=== PATIENT | female | born 1965 | race Caucasian/White ===

== ENCOUNTER 2022-01-13 12:37 | Emergency (ER) | payer SELFPAY ==
[2022-01-13 13:51] LABS: #Basophils 0.1 thou/uL (0.0-0.2); #Eosinphils 0.3 thou/uL (0.0-0.7); #Lymphocytes 2.6 thou/uL (1.20-3.40); #Monocytes 0.4 thou/uL (0.11-0.59); #Neutrophils 5.4 thou/uL (1.40-6.50); %Basophils 0.9 % (0.0-1.0); %Eosinophils 2.9 % (0.0-10.0); %Lymphocytes 29.6 % (21.0-51.0); %Monocytes 4.5 % (0.0-10.0); %Neutrophils 62.2 % (42.0-75.0); Hemoglobin 13.9 g/dL (12.0-16.0); Mean Corpuscular HGB CONC 34.3 g/dL (32.0-36.0); Mean Corpuscular Hemoglobin 31.5 pg (27.0-31.0); Mean Corpuscular Volume 91.8 fL (78.0-98.0); Mean Platelet Volume 8.1 fL (7.4-10.4); Platelet Count 216 thou/uL (130-400); RBC Distribution Width 12.3 % (11.5-14.5); Red Blood Cell (RBC) Count 4.41 mill/uL (4.20-5.40); White Blood Cell (WBC) Count 8.8 thou/uL (4.8-10.8)
[2022-01-13 14:04] LABS: Bilirubin Negative (Negative); Blood, Urine 3+ (Negative); Clarity Turbid (Clear); Glucose, Urine (Dipstick) 500 mg/dL (Negative); Ketone, Urine Negative (Negative); Leukocyte 500 Leu/uL (Negative); Nitrite Negative (Negative); Protein, Urine (Dipstick) 200 mg/dL (Neg-Trace); Urobilinogen Normal mg/dL (Less than 2); pH, Urine 5.5 (5.0-9.0)
[2022-01-13 14:10] LABS: ALT (SGPT) 12 U/L (8-55); AST (SGOT) 12 U/L (5-34); Albumin 3.5 g/dL (3.5-5.0); Alkaline Phosphatase 80 U/L (40-110); Anion Gap 12 mmol/L (10-20); BUN (Urea Nitrogen) 23 mg/dL (9.8-20.1); Bilirubin, Total 0.6 mg/dL (0.2-1.2); Calc. Creatinine Clearance 0 mL/min (70-130); Calcium 9.1 mg/dL (7.8-10.44); Carbon Dioxide 18 mmol/L (22-29); Chloride 107 mmol/L (98-107); Glucose 287 mg/dL (70-105); Lipase 24 U/L (8-78); Magnesium 1.6 mg/dL (1.6-2.6); Potassium 4.2 mmol/L (3.5-5.1); Protein, Total 7.5 g/dL (6.0-8.3); Sodium 133 mmol/L (136-145)
[2022-01-13 14:13] LABS: Bacteria/HPF 3+ HPF (None Seen); WBC/HPF 21-50 HPF (0-3)
[2022-01-13] MEDS ORDERED: Dicyclomine 20 MG/2 ML VIAL ONE (15:49)
[2022-01-13] MEDS ORDERED: Ketorolac Tromethamine 30 MG/ML VIAL ONE (15:49)
[2022-01-13] MEDS ORDERED: Ondansetron PF 4 MG/2 ML Vial ONE (15:49)
[2022-01-13 16:02] LABS: BHCG - Serum Negative (NEGATIVE); Pregs Control Background? CLEAR/WHITE (CLR/WHITE); Pregs Control Bar Appear? YES (CONTROL BAR)
== END 2022-01-13 17:17 | disposition home or self-care (01) ==
LOC: ERS 12:37
DX: A08.4 Viral intestinal infection, unspecified (principal); E11.9 Type 2 diabetes mellitus without complications; I10 Essential (primary) hypertension; E66.9 Obesity, unspecified
CPT/HCPCS: 36415; 74177; 80053; 81003; 81015; 83690; 83735; 84703; 85025; 87077; 87086; 94760; 96372; 96374; 96375; J0500; J1885; J2405

== ENCOUNTER 2022-02-24 17:38 | Inpatient (IN) | payer SELFPAY ==
[~2022-02-24 17:38] MED LIST: ISOVUE-370 76%-LOCM 1 ML ONE
[2022-02-24 18:46] LABS: #Eosinphils 0.1 thou/uL (0.0-0.7); #Lymphocytes 2.4 thou/uL (1.20-3.40); #Monocytes 0.9 thou/uL (0.11-0.59); #Neutrophils 9.8 thou/uL (1.40-6.50); %Basophils 0.3 % (0.0-1.0); %Lymphocytes 18.1 % (21.0-51.0); %Monocytes 6.6 % (0.0-10.0); Hemoglobin 12.3 g/dL (12.0-16.0); Mean Corpuscular HGB CONC 33.5 g/dL (32.0-36.0); Mean Corpuscular Hemoglobin 30.9 pg (27.0-31.0); Mean Corpuscular Volume 92.3 fL (78.0-98.0); Mean Platelet Volume 7.7 fL (7.4-10.4); Platelet Count 227 thou/uL (130-400); Red Blood Cell (RBC) Count 3.98 mill/uL (4.20-5.40); White Blood Cell (WBC) Count 13.3 thou/uL (4.8-10.8)
[2022-02-24 19:04] LABS: ALT (SGPT) 19 U/L (8-55); AST (SGOT) 17 U/L (5-34); Albumin 3.2 g/dL (3.5-5.0); Alkaline Phosphatase 114 U/L (40-110); Anion Gap 11 mmol/L (10-20); BUN (Urea Nitrogen) 11 mg/dL (9.8-20.1); Bilirubin, Total 0.8 mg/dL (0.2-1.2); Calc. Creatinine Clearance 0 mL/min (70-130); Calcium 9.4 mg/dL (7.8-10.44); Carbon Dioxide 28 mmol/L (22-29); Chloride 103 mmol/L (98-107); Globulin 4.1 g/dL (2.4-3.5); Glucose 210 mg/dL (70-105); Protein, Total 7.3 g/dL (6.0-8.3); Sodium 138 mmol/L (136-145)
[2022-02-24] MEDS ORDERED: Acetaminophen 500 MG TAB ONE (19:47)
[2022-02-24] MEDS ORDERED: Cefepime 2 GM VIAL ONE (20:38)
[2022-02-24] MEDS ORDERED: Ketorolac Tromethamine 30 MG/ML VIAL ONE (20:59)
[2022-02-24] MEDS ORDERED: Boostrix 0.5 ML (Tdap) VIAL ONE (20:59)
[2022-02-24] MEDS ORDERED: Vancomycin 1 GM/200 ML BAG ONE ×2 (21:01→21:22)
[2022-02-24] MEDS ORDERED: Acetaminophen 325 MG TAB PO PRN (22:30)
[2022-02-24] MEDS ORDERED: Ondansetron ODT 4 MG TAB SL PRN (22:30)
[2022-02-24] MEDS ORDERED: Ondansetron PF 4 MG/2 ML Vial IVP PRN (22:30)
[2022-02-24 23:07] VITALS: BMI 45.6
[2022-02-24] MEDS ORDERED: Acetaminophen 650 MG Suppository PR PRN (23:41)
[2022-02-24] MEDS ORDERED: Lactated Ringer's 1,000 ML IV SCH (23:59)
[2022-02-25] MEDS: Lactated Ringer's 1,000 ML IV SCH ×3 (01:44→20:00)
[2022-02-25] MEDS: Piperacillin/Tazobactam 3.375 GM in Sodium Chloride 0.9% 100 ML IVPB SCH ×3 (01:44→18:24)
[2022-02-25] MEDS: Morphine 2 MG/ML VIAL SLOW IVP PRN ×4 (01:45→17:04)
[2022-02-25 06:20] LABS: SARS-CoV-2 NAA Rapid Test Not Detected (NotDetected)
[2022-02-25 07:27] LABS: #Basophils 0.1 thou/uL (0.0-0.2); #Eosinphils 0.2 thou/uL (0.0-0.7); #Monocytes 0.7 thou/uL (0.11-0.59); #Neutrophils 6.4 thou/uL (1.40-6.50); %Basophils 0.6 % (0.0-1.0); %Lymphocytes 21.6 % (21.0-51.0); %Monocytes 7.2 % (0.0-10.0); %Neutrophils 68.6 % (42.0-75.0); Hemoglobin 11.1 g/dL (12.0-16.0); Mean Corpuscular HGB CONC 34.1 g/dL (32.0-36.0); Mean Corpuscular Hemoglobin 31.3 pg (27.0-31.0); Mean Corpuscular Volume 91.9 fL (78.0-98.0); Mean Platelet Volume 7.5 fL (7.4-10.4); Platelet Count 171 thou/uL (130-400); Red Blood Cell (RBC) Count 3.56 mill/uL (4.20-5.40); White Blood Cell (WBC) Count 9.3 thou/uL (4.8-10.8)
[2022-02-25 07:39] LABS: Hemoglobin A1c 10.6 % (4.0-6.0)
[2022-02-25 07:46] LABS: Anion Gap 12 mmol/L (10-20); BUN (Urea Nitrogen) 16 mg/dL (9.8-20.1); Calc. Creatinine Clearance 170 mL/min (70-130); Calcium 8.3 mg/dL (7.8-10.44); Carbon Dioxide 25 mmol/L (22-29); Chloride 105 mmol/L (98-107); Glucose 266 mg/dL (70-105); Potassium 3.7 mmol/L (3.5-5.1); Sodium 138 mmol/L (136-145)
[2022-02-25] MEDS ORDERED: VANCOMYCIN 1.25 GM/250 ML BAG IVPB SCH (09:00)
[2022-02-25] MEDS ORDERED: Dextrose 50% Abboject 50 ML SYRINGE SLOW IVP PRN ×2 (09:05→17:16)
[2022-02-25] MEDS ORDERED: Dextrose 5% in Water 1,000 ML IV PRN ×2 (09:05→17:16)
[2022-02-25] MEDS: VANCOMYCIN 2 GRAM/500 ML BAG 2 GM in Premix Bag 1 BAG IVPB SCH ×2 (09:30→22:39)
[2022-02-25] MEDS ORDERED: Lidocaine 1% w/Epinephrine 1:100K 20 ML VIAL NERVE BLCK SCH (12:30)
[2022-02-25] MEDS ORDERED: Cyclobenzaprine 10 MG TAB PO SCH (21:45)
[2022-02-25] MEDS: Acetaminophen 325 MG TAB PO PRN (21:49)
[2022-02-25] MEDS: HumaLOG 300 UNITS/3 ML VIAL SC PRN (21:57)
[2022-02-26] MEDS: Piperacillin/Tazobactam 3.375 GM in Sodium Chloride 0.9% 100 ML IVPB SCH ×2 (01:43→13:41)
[2022-02-26] MEDS ORDERED: Ondansetron PF 4 MG/2 ML Vial IVP SCH (03:15)
[2022-02-26] MEDS: HumaLOG 300 UNITS/3 ML VIAL SC PRN (06:35)
[2022-02-26] MEDS: Lactated Ringer's 1,000 ML IV SCH (06:49)
[2022-02-26] MEDS ORDERED: metFORMIN 500 MG TAB PO SCH (08:00)
[2022-02-26] MEDS: Acetaminophen 325 MG TAB PO PRN ×2 (08:30→12:22)
[2022-02-26 08:58] LABS: Vancomycin, Trough 18.5 ug/mL
[2022-02-26] MEDS ORDERED: Enoxaparin Sodium 40 MG/0.4 ML SYRINGE SC SCH (09:00)
[2022-02-26] MEDS: VANCOMYCIN 2 GRAM/500 ML BAG 2 GM in Premix Bag 1 BAG IVPB SCH (11:05)
[2022-02-26 13:19] VITALS: BP 165/116; TEMP 99
== END 2022-02-26 17:08 | disposition home or self-care (01) | DRG 872 ==
LOC: ERS 17:38 → SJJU 21:25
PROVIDERS: ADMIT Internal Medicine; ATTEND Internal Medicine
PROC: 3E03329 Introduction of Other Anti-infective into Peripheral Vein, Percutaneous Approach (ICD-10-PCS; principal; 2022-02-24)
PROC: 0J9R0ZZ Drainage of Left Foot Subcutaneous Tissue and Fascia, Open Approach (ICD-10-PCS; 2022-02-25)
DX: A41.9 Sepsis, unspecified organism (principal); L03.116 Cellulitis of left lower limb; L02.612 Cutaneous abscess of left foot; Z68.42 Body mass index [BMI] 45.0-49.9, adult; Z20.822 Contact with and (suspected) exposure to COVID-19; E66.01 Morbid (severe) obesity due to excess calories; E11.65 Type 2 diabetes mellitus with hyperglycemia; I10 Essential (primary) hypertension; S91.342A Puncture wound with foreign body, left foot, initial encounter; E88.81 Metabolic syndrome and other insulin resistance; Z90.49 Acquired absence of other specified parts of digestive tract; Z98.51 Tubal ligation status
CPT/HCPCS: 36415; 36416; 80048; 80053; 80202; 83036; 83605; 85025; 87040; 90715; J0692; J1650; J1815; J1885; J2270; J2405; J2543; J3370; J3490; J7120; Q9966; U0002

== ENCOUNTER 2022-03-10 18:41 | Inpatient (IN) | payer SELFPAY ==
[2022-03-10 19:54] LABS: #Basophils 0.1 thou/uL (0.0-0.2); #Eosinphils 0.2 thou/uL (0.0-0.7); #Lymphocytes 3.9 thou/uL (1.20-3.40); #Monocytes 0.6 thou/uL (0.11-0.59); #Neutrophils 6.8 thou/uL (1.40-6.50); %Basophils 0.7 % (0.0-1.0); %Eosinophils 1.9 % (0.0-10.0); %Lymphocytes 33.1 % (21.0-51.0); %Monocytes 5.5 % (0.0-10.0); %Neutrophils 58.8 % (42.0-75.0); Hemoglobin 13.2 g/dL (12.0-16.0); Mean Corpuscular HGB CONC 33.4 g/dL (32.0-36.0); Mean Corpuscular Volume 89.8 fL (78.0-98.0); Mean Platelet Volume 7.3 fL (7.4-10.4); Platelet Count 280 thou/uL (130-400); RBC Distribution Width 12.6 % (11.5-14.5); Red Blood Cell (RBC) Count 4.41 mill/uL (4.20-5.40); White Blood Cell (WBC) Count 11.6 thou/uL (4.8-10.8)
[2022-03-10 20:13] LABS: ALT (SGPT) 11 U/L (8-55); AST (SGOT) 13 U/L (5-34); Albumin 3.4 g/dL (3.5-5.0); Alkaline Phosphatase 106 U/L (40-110); Anion Gap 13 mmol/L (10-20); BUN (Urea Nitrogen) 23 mg/dL (9.8-20.1); Bilirubin, Total 0.4 mg/dL (0.2-1.2); Calc. Creatinine Clearance 0 mL/min (70-130); Calcium 9.7 mg/dL (7.8-10.44); Carbon Dioxide 30 mmol/L (22-29); Chloride 99 mmol/L (98-107); Estimated GFR 67; Globulin 4.5 g/dL (2.4-3.5); Glucose 326 mg/dL (70-105); Potassium 4.5 mmol/L (3.5-5.1); Protein, Total 7.9 g/dL (6.0-8.3); Sodium 137 mmol/L (136-145)
[2022-03-10] MEDS ORDERED: Piperacillin/Tazobactam 3.375 GM VIAL ONE (21:15)
[2022-03-10] MEDS ORDERED: Vancomycin 1 GM/200 ML BAG ONE (21:15)
[2022-03-10] MEDS ORDERED: Zolpidem Tartrate 5 MG TAB PO PRN (21:51)
[2022-03-10] MEDS ORDERED: Dextrose 50% Abboject 50 ML SYRINGE SLOW IVP PRN (21:51)
[2022-03-10] MEDS ORDERED: HumaLOG 300 UNITS/3 ML VIAL SC PRN (21:51)
[2022-03-10] MEDS ORDERED: Acetaminophen 325 MG TAB PO PRN (21:51)
[2022-03-10] MEDS ORDERED: Dextrose 5% in Water 1,000 ML IV PRN (21:51)
[2022-03-10] MEDS ORDERED: Bisacodyl 5 MG TAB PO PRN (21:51)
[2022-03-10] MEDS ORDERED: Morphine 2 MG/ML VIAL SLOW IVP PRN (21:54)
[2022-03-10] MEDS ORDERED: Vancomycin 1 GM in Premix Bag 1 BAG IVPB SCH (22:00)
[2022-03-10] MEDS: Sodium Chloride 0.9% 1,000 ML IV SCH (22:59)
[2022-03-10 23:05] VITALS: BMI 44.6
[2022-03-11 02:11] LABS: SARS-CoV-2 NAA Rapid Test Not Detected (NotDetected)
[2022-03-11] MEDS: Vancomycin 1.5 GRAM/300 ML BAG 1.5 GM in Premix Bag 1 BAG IVPB SCH ×2 (05:24→17:53)
[2022-03-11] MEDS: HumaLOG 300 UNITS/3 ML VIAL SC PRN ×2 (05:25→16:49)
[2022-03-11 06:41] LABS: #Basophils 0.1 thou/uL (0.0-0.2); #Eosinphils 0.2 thou/uL (0.0-0.7); #Lymphocytes 4.1 thou/uL (1.20-3.40); #Monocytes 0.7 thou/uL (0.11-0.59); #Neutrophils 6.1 thou/uL (1.40-6.50); %Basophils 0.5 % (0.0-1.0); %Eosinophils 2.2 % (0.0-10.0); %Lymphocytes 36.7 % (21.0-51.0); %Monocytes 6.2 % (0.0-10.0); %Neutrophils 54.4 % (42.0-75.0); Hemoglobin 11.5 g/dL (12.0-16.0); Mean Corpuscular HGB CONC 34.1 g/dL (32.0-36.0); Mean Corpuscular Hemoglobin 30.9 pg (27.0-31.0); Mean Corpuscular Volume 90.6 fL (78.0-98.0); Mean Platelet Volume 7.8 fL (7.4-10.4); Platelet Count 248 thou/uL (130-400); RBC Distribution Width 12.5 % (11.5-14.5); Red Blood Cell (RBC) Count 3.71 mill/uL (4.20-5.40); White Blood Cell (WBC) Count 11.2 thou/uL (4.8-10.8)
[2022-03-11 07:09] LABS: ALT (SGPT) 9 U/L (8-55); AST (SGOT) 10 U/L (5-34); Albumin 2.9 g/dL (3.5-5.0); Alkaline Phosphatase 88 U/L (40-110); Anion Gap 10 mmol/L (10-20); BUN (Urea Nitrogen) 25 mg/dL (9.8-20.1); Bilirubin, Total 0.4 mg/dL (0.2-1.2); Calc. Creatinine Clearance 122 mL/min (70-130); Calcium 9.1 mg/dL (7.8-10.44); Carbon Dioxide 29 mmol/L (22-29); Chloride 100 mmol/L (98-107); Estimated GFR 67; Globulin 4.3 g/dL (2.4-3.5); Glucose 353 mg/dL (70-105); Potassium 3.8 mmol/L (3.5-5.1); Protein, Total 7.2 g/dL (6.0-8.3); Sodium 135 mmol/L (136-145)
[2022-03-11] MEDS: Famotidine 20 MG TAB PO SCH ×2 (08:48→20:23)
[2022-03-11] MEDS: metFORMIN 500 MG TAB PO SCH ×2 (08:48→16:48)
[2022-03-11] MEDS: Enoxaparin Sodium 40 MG/0.4 ML SYRINGE SC SCH (08:48)
[2022-03-11] MEDS ORDERED: sitaGLIPtin Phosphate 25 MG TAB PO SCH (09:00)
[2022-03-11] MEDS ORDERED: Alogliptin 6.25 MG TAB PO SCH (09:00)
[2022-03-11] MEDS ORDERED: Cefepime 1 GM in Sodium Chloride 0.9% 100 ML IVPB SCH (11:00)
[2022-03-11] MEDS: Sodium Chloride 0.9% 1,000 ML IV SCH (12:31)
[2022-03-11] MEDS ORDERED: fentaNYL Citrate/PF 100 MCG/2 ML SYRINGE ONE ×2 (12:36→12:53)
[2022-03-11] MEDS ORDERED: Midazolam HCl 2 mg/2 ml Vial ONE ×2 (12:52→12:54)
[2022-03-11] MEDS ORDERED: hydrALAZINE 20 MG/ML VIAL ONE (12:53)
[2022-03-11] MEDS ORDERED: Lidocaine 1% PF 5 ML VIAL ONE (13:11)
[2022-03-11] MEDS ORDERED: Phenylephrine 10 MG/ML VIAL ONE (13:11)
[2022-03-11] MEDS ORDERED: Ondansetron PF 4 MG/2 ML Vial ONE (13:11)
[2022-03-11] MEDS ORDERED: ePHEDrine 50 MG/ML VIAL ONE (13:11)
[2022-03-11] MEDS ORDERED: Metoclopramide HCl 10 MG/2 ML VIAL ONE (13:11)
[2022-03-11] MEDS ORDERED: PROPOFOL 200 MG/20 ML VIAL ONE (13:11)
[2022-03-11] MEDS ORDERED: Promethazine HCl 25 MG/ML VIAL IVPB PRN (14:02)
[2022-03-11] MEDS ORDERED: Ondansetron HCl/PF 4 MG/2 ML Vial IVP PRN (14:02)
[2022-03-11] MEDS: HYDROcodone/Acetaminophen 5/325 mg Tablet PO PRN (20:22)
[2022-03-11] MEDS: Lisinopril 10 MG TAB PO SCH (20:23)
[2022-03-11] MEDS: Cefepime 2 GM in Sodium Chloride 0.9% 100 ML IVPB SCH (22:29)
[2022-03-12] MEDS: Sodium Chloride 0.9% 1,000 ML IV SCH ×2 (00:15→17:19)
[2022-03-12] MEDS: HYDROcodone/Acetaminophen 5/325 mg Tablet PO PRN ×4 (00:15→23:30)
[2022-03-12 05:15] LABS: #Basophils 0.1 thou/uL (0.0-0.2); #Eosinphils 0.2 thou/uL (0.0-0.7); #Lymphocytes 3.4 thou/uL (1.20-3.40); #Monocytes 0.8 thou/uL (0.11-0.59); #Neutrophils 6.3 thou/uL (1.40-6.50); %Basophils 0.7 % (0.0-1.0); %Eosinophils 2.1 % (0.0-10.0); %Lymphocytes 31.5 % (21.0-51.0); %Monocytes 6.9 % (0.0-10.0); %Neutrophils 58.7 % (42.0-75.0); Hemoglobin 10.6 g/dL (12.0-16.0); Mean Corpuscular HGB CONC 33.9 g/dL (32.0-36.0); Mean Corpuscular Hemoglobin 30.9 pg (27.0-31.0); Mean Corpuscular Volume 91.2 fL (78.0-98.0); Mean Platelet Volume 7.5 fL (7.4-10.4); Platelet Count 206 thou/uL (130-400); RBC Distribution Width 12.5 % (11.5-14.5); Red Blood Cell (RBC) Count 3.44 mill/uL (4.20-5.40); White Blood Cell (WBC) Count 10.7 thou/uL (4.8-10.8)
[2022-03-12 05:34] LABS: Hemoglobin A1c 10.6 % (4.0-6.0)
[2022-03-12 05:47] LABS: ALT (SGPT) 8 U/L (8-55); AST (SGOT) 10 U/L (5-34); Albumin 2.8 g/dL (3.5-5.0); Alkaline Phosphatase 79 U/L (40-110); Anion Gap 12 mmol/L (10-20); BUN (Urea Nitrogen) 21 mg/dL (9.8-20.1); Bilirubin, Total 0.3 mg/dL (0.2-1.2); Calc. Creatinine Clearance 136 mL/min (70-130); Calcium 8.5 mg/dL (7.8-10.44); Carbon Dioxide 26 mmol/L (22-29); Chloride 103 mmol/L (98-107); Estimated GFR 76; Globulin 3.8 g/dL (2.4-3.5); Glucose 269 mg/dL (70-105); Potassium 3.9 mmol/L (3.5-5.1); Protein, Total 6.6 g/dL (6.0-8.3); Sodium 137 mmol/L (136-145)
[2022-03-12] MEDS: HumaLOG 300 UNITS/3 ML VIAL SC PRN ×2 (05:50→12:38)
[2022-03-12] MEDS: Vancomycin 1.5 GRAM/300 ML BAG 1.5 GM in Premix Bag 1 BAG IVPB SCH ×2 (05:50→18:52)
[2022-03-12] MEDS ORDERED: Alogliptin 6.25 MG TAB PO SCH (09:00)
[2022-03-12] MEDS: Enoxaparin Sodium 40 MG/0.4 ML SYRINGE SC SCH (10:08)
[2022-03-12] MEDS: Famotidine 20 MG TAB PO SCH ×2 (10:08→20:02)
[2022-03-12] MEDS: metFORMIN 500 MG TAB PO SCH ×2 (10:08→17:20)
[2022-03-12] MEDS: Cefepime 2 GM in Sodium Chloride 0.9% 100 ML IVPB SCH ×2 (10:24→23:27)
[2022-03-12 17:17] LABS: Vancomycin, Trough 17.9 ug/mL
[2022-03-12] MEDS: Lisinopril 10 MG TAB PO SCH (20:02)
[2022-03-13] MEDS: Ondansetron PF 4 MG/2 ML Vial IVP PRN (02:07)
[2022-03-13 05:02] LABS: #Eosinphils 0.3 thou/uL (0.0-0.7); #Lymphocytes 3.5 thou/uL (1.20-3.40); #Monocytes 0.7 thou/uL (0.11-0.59); #Neutrophils 6.4 thou/uL (1.40-6.50); %Basophils 0.4 % (0.0-1.0); %Eosinophils 2.5 % (0.0-10.0); %Lymphocytes 32.2 % (21.0-51.0); %Monocytes 6.1 % (0.0-10.0); %Neutrophils 58.8 % (42.0-75.0); Hemoglobin 11.5 g/dL (12.0-16.0); Mean Corpuscular HGB CONC 32.9 g/dL (32.0-36.0); Mean Corpuscular Hemoglobin 30.4 pg (27.0-31.0); Mean Corpuscular Volume 92.1 fL (78.0-98.0); Mean Platelet Volume 7.6 fL (7.4-10.4); Platelet Count 222 thou/uL (130-400); RBC Distribution Width 12.7 % (11.5-14.5); White Blood Cell (WBC) Count 10.9 thou/uL (4.8-10.8)
[2022-03-13 06:03] LABS: Anion Gap 12 mmol/L (10-20); BUN (Urea Nitrogen) 15 mg/dL (9.8-20.1); Calc. Creatinine Clearance 151 mL/min (70-130); Calcium 8.9 mg/dL (7.8-10.44); Carbon Dioxide 25 mmol/L (22-29); Chloride 105 mmol/L (98-107); Estimated GFR 86; Glucose 191 mg/dL (70-105); Potassium 3.9 mmol/L (3.5-5.1); Sodium 138 mmol/L (136-145)
[2022-03-13] MEDS: HumaLOG 300 UNITS/3 ML VIAL SC PRN ×2 (06:18→12:14)
[2022-03-13] MEDS: Vancomycin 1.5 GRAM/300 ML BAG 1.5 GM in Premix Bag 1 BAG IVPB SCH ×2 (06:18→17:16)
[2022-03-13] MEDS: Sodium Chloride 0.9% 1,000 ML IV SCH ×2 (06:19→17:17)
[2022-03-13] MEDS: Enoxaparin Sodium 40 MG/0.4 ML SYRINGE SC SCH (10:13)
[2022-03-13] MEDS: Alogliptin 25 MG TAB PO SCH (10:13)
[2022-03-13] MEDS: metFORMIN 500 MG TAB PO SCH ×2 (10:13→17:16)
[2022-03-13] MEDS: Famotidine 20 MG TAB PO SCH ×2 (10:14→21:17)
[2022-03-13] MEDS: Cefepime 2 GM in Sodium Chloride 0.9% 100 ML IVPB SCH ×2 (10:18→23:38)
[2022-03-13] MEDS: HYDROcodone/Acetaminophen 5/325 mg Tablet PO PRN ×2 (12:14→21:18)
[2022-03-13 17:23] LABS: Vancomycin, Trough 21.2 ug/mL
[2022-03-13] MEDS: Lisinopril 10 MG TAB PO SCH (21:18)
[2022-03-13] MEDS: Loperamide HCl 2 MG CAP PO PRN (21:18)
[2022-03-14] MEDS: Sodium Chloride 0.9% 1,000 ML IV SCH ×2 (03:55→19:20)
[2022-03-14 06:00] LABS: #Eosinphils 0.2 thou/uL (0.0-0.7); #Lymphocytes 2.6 thou/uL (1.20-3.40); #Monocytes 0.5 thou/uL (0.11-0.59); #Neutrophils 4.5 thou/uL (1.40-6.50); %Basophils 0.3 % (0.0-1.0); %Eosinophils 2.8 % (0.0-10.0); %Monocytes 5.7 % (0.0-10.0); %Neutrophils 58.1 % (42.0-75.0); Hemoglobin 10.7 g/dL (12.0-16.0); Mean Corpuscular HGB CONC 32.9 g/dL (32.0-36.0); Mean Corpuscular Hemoglobin 30.5 pg (27.0-31.0); Mean Corpuscular Volume 92.6 fL (78.0-98.0); Mean Platelet Volume 7.8 fL (7.4-10.4); Platelet Count 219 thou/uL (130-400); RBC Distribution Width 12.5 % (11.5-14.5); White Blood Cell (WBC) Count 7.8 thou/uL (4.8-10.8)
[2022-03-14] MEDS: VANCOMYCIN 1.25 GM/250 ML BAG 1.25 GM in Premix Bag 1 BAG IVPB SCH ×2 (06:04→19:15)
[2022-03-14 06:22] LABS: Anion Gap 10 mmol/L (10-20); BUN (Urea Nitrogen) 17 mg/dL (9.8-20.1); Calc. Creatinine Clearance 161 mL/min (70-130); Calcium 8.9 mg/dL (7.8-10.44); Carbon Dioxide 25 mmol/L (22-29); Chloride 108 mmol/L (98-107); Estimated GFR 92; Glucose 162 mg/dL (70-105); Potassium 3.8 mmol/L (3.5-5.1); Sodium 139 mmol/L (136-145)
[2022-03-14] MEDS: HumaLOG 300 UNITS/3 ML VIAL SC PRN (06:48)
[2022-03-14] MEDS: HYDROcodone/Acetaminophen 5/325 mg Tablet PO PRN ×2 (06:50→19:15)
[2022-03-14] MEDS: Enoxaparin Sodium 40 MG/0.4 ML SYRINGE SC SCH (08:30)
[2022-03-14] MEDS: Lisinopril 10 MG TAB PO SCH ×2 (08:31→21:07)
[2022-03-14] MEDS: metFORMIN 500 MG TAB PO SCH ×2 (08:31→19:16)
[2022-03-14] MEDS: Famotidine 20 MG TAB PO SCH ×2 (08:31→21:07)
[2022-03-14] MEDS: Alogliptin 25 MG TAB PO SCH (08:34)
[2022-03-14] MEDS: Cefepime 2 GM in Sodium Chloride 0.9% 100 ML IVPB SCH ×2 (11:43→23:46)
[2022-03-14] MEDS: hydrALAZINE 20 MG/ML VIAL SLOW IVP PRN (21:10)
[2022-03-15] MEDS: VANCOMYCIN 1.25 GM/250 ML BAG 1.25 GM in Premix Bag 1 BAG IVPB SCH ×2 (06:28→18:01)
[2022-03-15] MEDS: Enoxaparin Sodium 40 MG/0.4 ML SYRINGE SC SCH (09:32)
[2022-03-15] MEDS: metFORMIN 500 MG TAB PO SCH ×2 (09:32→18:01)
[2022-03-15] MEDS: Famotidine 20 MG TAB PO SCH ×2 (09:32→20:36)
[2022-03-15] MEDS: HYDROcodone/Acetaminophen 5/325 mg Tablet PO PRN ×2 (09:32→17:59)
[2022-03-15] MEDS: Alogliptin 25 MG TAB PO SCH (09:32)
[2022-03-15] MEDS: Lisinopril 10 MG TAB PO SCH ×2 (09:32→20:36)
[2022-03-15] MEDS: Loperamide HCl 2 MG CAP PO PRN (09:35)
[2022-03-15] MEDS: Sodium Chloride 0.9% 1,000 ML IV SCH ×2 (11:12→20:36)
[2022-03-15] MEDS: Cefepime 2 GM in Sodium Chloride 0.9% 100 ML IVPB SCH ×2 (12:24→23:20)
[2022-03-15 17:15] LABS: Vancomycin, Trough 17.4 ug/mL
[2022-03-16] MEDS: Ondansetron PF 4 MG/2 ML Vial IVP PRN (05:01)
[2022-03-16] MEDS: hydrALAZINE 20 MG/ML VIAL SLOW IVP PRN ×2 (05:14→17:20)
[2022-03-16 05:52] LABS: #Basophils 0.1 thou/uL (0.0-0.2); #Eosinphils 0.2 thou/uL (0.0-0.7); #Lymphocytes 2.9 thou/uL (1.20-3.40); #Monocytes 0.5 thou/uL (0.11-0.59); #Neutrophils 4.7 thou/uL (1.40-6.50); %Eosinophils 2.9 % (0.0-10.0); %Monocytes 6.4 % (0.0-10.0); %Neutrophils 55.8 % (42.0-75.0); Hemoglobin 11.6 g/dL (12.0-16.0); Mean Corpuscular HGB CONC 32.9 g/dL (32.0-36.0); Mean Corpuscular Hemoglobin 29.9 pg (27.0-31.0); Mean Corpuscular Volume 90.9 fL (78.0-98.0); Mean Platelet Volume 7.7 fL (7.4-10.4); Platelet Count 229 thou/uL (130-400); RBC Distribution Width 12.6 % (11.5-14.5); Red Blood Cell (RBC) Count 3.87 mill/uL (4.20-5.40); White Blood Cell (WBC) Count 8.4 thou/uL (4.8-10.8)
[2022-03-16 06:05] LABS: Anion Gap 11 mmol/L (10-20); BUN (Urea Nitrogen) 10 mg/dL (9.8-20.1); Calc. Creatinine Clearance 182 mL/min (70-130); Calcium 9.2 mg/dL (7.8-10.44); Carbon Dioxide 25 mmol/L (22-29); Chloride 108 mmol/L (98-107); Estimated GFR 103; Glucose 143 mg/dL (70-105); Potassium 3.8 mmol/L (3.5-5.1); Sodium 140 mmol/L (136-145)
[2022-03-16] MEDS: VANCOMYCIN 1.25 GM/250 ML BAG 1.25 GM in Premix Bag 1 BAG IVPB SCH ×2 (06:23→18:20)
[2022-03-16] MEDS: Famotidine 20 MG TAB PO SCH (08:01)
[2022-03-16] MEDS: Enoxaparin Sodium 40 MG/0.4 ML SYRINGE SC SCH (08:01)
[2022-03-16] MEDS: Alogliptin 25 MG TAB PO SCH (08:01)
[2022-03-16] MEDS: metFORMIN 500 MG TAB PO SCH ×2 (08:02→17:20)
[2022-03-16] MEDS: HYDROcodone/Acetaminophen 5/325 mg Tablet PO PRN ×3 (08:04→17:20)
[2022-03-16] MEDS ORDERED: Lisinopril 20 MG TAB PO SCH (09:00)
[2022-03-16] MEDS: Cefepime 2 GM in Sodium Chloride 0.9% 100 ML IVPB SCH (10:14)
[2022-03-16] MEDS: Sodium Chloride 0.9% 1,000 ML IV SCH (10:14)
[2022-03-16 18:13] VITALS: BP 147/81; TEMP 97.8
== END 2022-03-16 18:35 | disposition home or self-care (01) | DRG 264 ==
LOC: ERS 18:41 → SJJU 21:43
PROVIDERS: ADMIT Internal Medicine; ATTEND Internal Medicine
PROC: 0JBR0ZZ Excision of Left Foot Subcutaneous Tissue and Fascia, Open Approach (ICD-10-PCS; principal; 2022-03-11)
DX: E11.52 Type 2 diabetes mellitus with diabetic peripheral angiopathy with gangrene (principal); L97.429 Non-pressure chronic ulcer of left heel and midfoot with unspecified severity; L03.116 Cellulitis of left lower limb; Z68.41 Body mass index [BMI] 40.0-44.9, adult; I10 Essential (primary) hypertension; Z20.822 Contact with and (suspected) exposure to COVID-19; E11.621 Type 2 diabetes mellitus with foot ulcer; E11.65 Type 2 diabetes mellitus with hyperglycemia; E66.01 Morbid (severe) obesity due to excess calories; E88.81 Metabolic syndrome and other insulin resistance; E11.628 Type 2 diabetes mellitus with other skin complications; Z90.49 Acquired absence of other specified parts of digestive tract; Z98.890 Other specified postprocedural states; Z79.84 Long term (current) use of oral hypoglycemic drugs; Z79.899 Other long term (current) drug therapy; Z91.14 Patient's other noncompliance with medication regimen
CPT/HCPCS: 36415; 36416; 80048; 80053; 80202; 83036; 83605; 85025; 87040; 87070; 87077; 87186; 87205; 96374; 96375; 97139; J0360; J0692; J1650; J1815; J2250; J2270; J2370; J2405; J2543; J2704; J2765; J3370; J3490; J7050; U0002

== ENCOUNTER 2022-12-01 15:29 | Emergency (ER) | payer OTHER | END 2022-12-01 16:39 | disposition home or self-care (01) | LOC: ERS 15:29 | DX: S80.01XA Contusion of right knee, initial encounter (principal); E11.9 Type 2 diabetes mellitus without complications; W01.10XA Fall on same level from slipping, tripping and stumbling with subsequent striking against unspecified object, initial encounter ==

== ENCOUNTER 2023-04-12 22:22 | Emergency (ER) | payer OTHER, SELFPAY ==
[~2023-04-12 22:22] MED LIST changes: -ISOVUE-370 76%-LOCM 1 ML ONE; +Iopamidol-370 76% 500 ML MDV (1 ML CHARGE) ONE
[2023-04-12] MEDS ORDERED: Ondansetron PF 4 MG/2 ML Vial ONE (23:53)
[2023-04-12] MEDS ORDERED: Morphine 4 MG/ML VIAL ONE (23:53)
[2023-04-13 00:11] LABS: #Eosinphils 0.2 thou/uL (0.0-0.7); #Monocytes 0.6 thou/uL (0.11-0.59); #Neutrophils 5.8 thou/uL (1.40-6.50); %Basophils 0.4 % (0.0-1.0); %Lymphocytes 35.1 % (21.0-51.0); %Neutrophils 56.3 % (42.0-75.0); Hematocrit 37.4 % (36.0-47.0); Hemoglobin 12.9 g/dL (12.0-16.0); Mean Corpuscular HGB CONC 34.5 g/dL (32.0-36.0); Mean Corpuscular Hemoglobin 29.7 pg (27.0-31.0); Mean Platelet Volume 10.5 fL (7.4-10.4); Platelet Count 208 10x3/uL (130-400); RBC Distribution Width 13.8 % (11.5-14.5); Red Blood Cell (RBC) Count 4.35 mill/uL (4.20-5.40); White Blood Cell (WBC) Count 10.3 10x3/uL (4.8-10.8)
[2023-04-13 00:38] LABS: ALT (SGPT) 12 U/L (8-55); AST (SGOT) 11 U/L (5-34); Albumin 3.3 g/dL (3.5-5.0); Alkaline Phosphatase 85 U/L (40-110); Anion Gap 13 mmol/L (10-20); BUN (Urea Nitrogen) 29 mg/dL (9.8-20.1); Bilirubin, Total 0.2 mg/dL (0.2-1.2); Calc. Creatinine Clearance 0 mL/min (70-130); Calcium 9.3 mg/dL (7.8-10.44); Carbon Dioxide 26 mmol/L (22-29); Chloride 103 mmol/L (98-107); Estimated GFR 53; Lipase 45 U/L (8-78); Potassium 3.9 mmol/L (3.5-5.1); Protein, Total 7.3 g/dL (6.0-8.3); Sodium 138 mmol/L (136-145)
[2023-04-13 00:40] LABS: Glucose 435 mg/dL (70-105)
[2023-04-13] MEDS ORDERED: Insulin Regular 300 UNITS/3 ML VIAL ONE (01:44)
[2023-04-13 05:58] LABS: Bilirubin Negative (Negative); Blood, Urine Negative (Negative); CAUTI Indications for Culture Dysuria,urgency,freq; Clarity Clear (Clear); Glucose, Urine (Dipstick) Greater than 1000 mg/dL (Negative); Ketone, Urine Negative (Negative); Leukocyte 75 Leu/uL (Negative); Nitrite Negative (Negative); Protein, Urine (Dipstick) 50 mg/dL (Neg-Trace); RBC/HPF 0-3 HPF (0-3); Urobilinogen Normal mg/dL (Less than 2); pH, Urine 5.5 (5.0-9.0)
[2023-04-13 06:01] LABS: Specific Gravity, Urine 1.049 (1.002-1.036)
[2023-04-13 06:11] LABS: Bacteria/HPF 4+ HPF (None Seen); Squamous Epithelial 0-3 HPF (0-3)
[2023-04-13 06:13] LABS: Urine Culture Reflex No No
== END 2023-04-13 05:32 | disposition home or self-care (01) ==
LOC: ERS 22:22
DX: R10.9 Unspecified abdominal pain (principal); E11.65 Type 2 diabetes mellitus with hyperglycemia; Z79.899 Other long term (current) drug therapy; Z79.4 Long term (current) use of insulin
CPT/HCPCS: 36416; 74177; 80053; 81001; 83690; 85025; 93005; 96361; 96374; 96375; J1815; J2270; J2405; Q9967

== ENCOUNTER 2023-04-16 16:14 | Emergency (ER) | payer SELFPAY | END 2023-04-16 16:56 | disposition home or self-care (01) | LOC: ERS 16:14 | DX: L13.9 Bullous disorder, unspecified (principal); E11.9 Type 2 diabetes mellitus without complications; Z79.4 Long term (current) use of insulin | CPT/HCPCS: 99283 ==

== ENCOUNTER 2023-04-29 16:49 | Emergency (ER) | payer OTHER, SELFPAY ==
[2023-04-29 17:17] LABS: #Basophils 0.1 thou/uL (0.0-0.2); #Eosinphils 0.2 thou/uL (0.0-0.7); #Monocytes 0.7 thou/uL (0.11-0.59); #Neutrophils 6.3 thou/uL (1.40-6.50); %Basophils 0.7 % (0.0-1.0); %Eosinophils 2.2 % (0.0-10.0); %Monocytes 6.7 % (0.0-10.0); %Neutrophils 61.1 % (42.0-75.0); Hematocrit 37.8 % (36.0-47.0); Hemoglobin 12.8 g/dL (12.0-16.0); Mean Corpuscular HGB CONC 33.9 g/dL (32.0-36.0); Mean Corpuscular Hemoglobin 30.3 pg (27.0-31.0); Mean Corpuscular Volume 89.6 fl (78.0-98.0); Mean Platelet Volume 10.1 fL (7.4-10.4); Platelet Count 239 10x3/uL (130-400); RBC Distribution Width 13.6 % (11.5-14.5); Red Blood Cell (RBC) Count 4.22 mill/uL (4.20-5.40); White Blood Cell (WBC) Count 10.2 10x3/uL (4.8-10.8)
[2023-04-29 17:49] LABS: ALT (SGPT) 28 U/L (8-55); AST (SGOT) 19 U/L (5-34); Albumin 3.6 g/dL (3.5-5.0); Alkaline Phosphatase 110 U/L (40-110); Anion Gap 10 mmol/L (10-20); BUN (Urea Nitrogen) 19 mg/dL (9.8-20.1); Bilirubin, Total 0.3 mg/dL (0.2-1.2); Calc. Creatinine Clearance 0 mL/min (70-130); Calcium 9.4 mg/dL (7.8-10.44); Carbon Dioxide 25 mmol/L (22-29); Chloride 109 mmol/L (98-107); Estimated GFR 83; Globulin 3.2 g/dL (2.4-3.5); Glucose 171 mg/dL (70-105); Lipase 38 U/L (8-78); Magnesium 1.9 mg/dL (1.6-2.6); Potassium 4.3 mmol/L (3.5-5.1); Protein, Total 6.8 g/dL (6.0-8.3); Sodium 140 mmol/L (136-145)
[2023-04-29 17:51] LABS: Troponin I Less than 0.010 ng/mL (< 0.028)
[2023-04-29] MEDS ORDERED: Aspirin Chewable 81 MG TAB ONE (20:38)
[2023-04-29] MEDS ORDERED: Ketorolac Tromethamine 30 MG/ML VIAL ONE (20:38)
[2023-04-29 20:51] LABS: Troponin I Less than 0.010 ng/mL (< 0.028)
[2023-04-29] MEDS ORDERED: Labetalol HCl 100 MG/20 ML VIAL ONE (22:12)
== END 2023-04-29 23:02 | disposition home or self-care (01) ==
LOC: ERS 16:49
DX: R07.9 Chest pain, unspecified (principal); R51.9 Headache, unspecified; H53.9 Unspecified visual disturbance; E11.9 Type 2 diabetes mellitus without complications; I10 Essential (primary) hypertension
CPT/HCPCS: 36415; 70450; 71045; 80053; 83690; 83735; 83880; 84484; 85025; 93005; 96374; 96375; J1885

== ENCOUNTER 2023-05-12 11:12 | Inpatient (IN) | payer BC, OTHER ==
[2023-05-12 11:47] LABS: #Basophils 0.1 thou/uL (0.0-0.2); #Eosinphils 0.2 thou/uL (0.0-0.7); #Monocytes 0.5 thou/uL (0.11-0.59); #Neutrophils 4.3 thou/uL (1.40-6.50); %Basophils 0.9 % (0.0-1.0); %Eosinophils 2.7 % (0.0-10.0); %Lymphocytes 34.3 % (21.0-51.0); %Monocytes 6.1 % (0.0-10.0); %Neutrophils 55.9 % (42.0-75.0); Hematocrit 34.2 % (36.0-47.0); Hemoglobin 11.7 g/dL (12.0-16.0); Mean Corpuscular HGB CONC 34.2 g/dL (32.0-36.0); Mean Corpuscular Hemoglobin 30.1 pg (27.0-31.0); Mean Corpuscular Volume 87.9 fl (78.0-98.0); Mean Platelet Volume 10.1 fL (7.4-10.4); Platelet Count 202 10x3/uL (130-400); RBC Distribution Width 13.4 % (11.5-14.5); Red Blood Cell (RBC) Count 3.89 mill/uL (4.20-5.40); White Blood Cell (WBC) Count 7.7 10x3/uL (4.8-10.8)
[2023-05-12 12:12] LABS: ALT (SGPT) 41 U/L (8-55); AST (SGOT) 24 U/L (5-34); Albumin 3.4 g/dL (3.5-5.0); Alkaline Phosphatase 107 U/L (40-110); Anion Gap 10 mmol/L (10-20); BUN (Urea Nitrogen) 25 mg/dL (9.8-20.1); Bilirubin, Total 0.3 mg/dL (0.2-1.2); Calc. Creatinine Clearance 0 mL/min (70-130); Calcium 9.1 mg/dL (7.8-10.44); Carbon Dioxide 24 mmol/L (22-29); Chloride 110 mmol/L (98-107); Estimated GFR 83; Globulin 3.7 g/dL (2.4-3.5); Glucose 154 mg/dL (70-105); Potassium 4.3 mmol/L (3.5-5.1); Protein, Total 7.1 g/dL (6.0-8.3); Sodium 140 mmol/L (136-145)
[2023-05-12 12:15] LABS: Troponin I Less than 0.010 ng/mL (< 0.028)
[2023-05-12] MEDS ORDERED: Nitroglycerin 0.4 MG TAB 1 EACH ONE (12:15)
[2023-05-12] MEDS ORDERED: Iopamidol-370 76% 500 ML MDV (1 ML CHARGE) ONE (12:24)
[2023-05-12] MEDS ORDERED: Ondansetron PF 4 MG/2 ML Vial ONE (14:55)
[2023-05-12] MEDS ORDERED: Morphine 4 MG/ML VIAL ONE (14:55)
[2023-05-12] MEDS ORDERED: Acetaminophen 650 MG Suppository PR PRN (16:00)
[2023-05-12] MEDS ORDERED: Dextrose 50% Abboject 50 ML SYRINGE SLOW IVP PRN (16:00)
[2023-05-12] MEDS ORDERED: Dextrose 5% in Water 1,000 ML IV PRN (16:00)
[2023-05-12] MEDS ORDERED: Glucagon 1 MG/ML KIT IM PRN (16:00)
[2023-05-12] MEDS ORDERED: Ondansetron PF 4 MG/2 ML Vial IVP PRN (16:00)
[2023-05-12] MEDS ORDERED: Calcium Carbonate 500 MG ChewTAB PO PRN (16:00)
[2023-05-12] MEDS ORDERED: HumaLOG 300 UNITS/3 ML VIAL SC PRN ×2 (16:04)
[2023-05-12 17:08] LABS: Hemoglobin A1c 8.4 % (4.0-6.0)
[2023-05-12 17:22] LABS: Glucose 97 mg/dL (70-105)
[2023-05-12 17:26] LABS: Troponin I Less than 0.010 ng/mL (< 0.028)
[2023-05-12 18:39] VITALS: BMI 48.4
[2023-05-12] MEDS ORDERED: Nitroglycerin 0.4 MG TAB (25 Tab Bottle) SL SCH (19:54)
[2023-05-12] MEDS: traZODone HCl 50 MG TAB PO SCH (20:10)
[2023-05-12] MEDS: Atorvastatin Calcium 40 MG TAB PO SCH (20:10)
[2023-05-12 21:33] LABS: Glucose 92 mg/dL (70-105)
[2023-05-12] MEDS: Insulin NPH Human Isophane 100 UNITS/ML (10 ML VIAL) SQ SCH (21:52)
[2023-05-13 05:01] LABS: #Basophils 0.1 thou/uL (0.0-0.2); #Eosinphils 0.3 thou/uL (0.0-0.7); #Monocytes 0.7 thou/uL (0.11-0.59); #Neutrophils 5.6 thou/uL (1.40-6.50); %Basophils 0.7 % (0.0-1.0); %Eosinophils 2.9 % (0.0-10.0); %Lymphocytes 35.2 % (21.0-51.0); %Monocytes 6.8 % (0.0-10.0); %Neutrophils 54.2 % (42.0-75.0); Hematocrit 34.7 % (36.0-47.0); Hemoglobin 11.4 g/dL (12.0-16.0); Mean Corpuscular HGB CONC 32.9 g/dL (32.0-36.0); Mean Corpuscular Hemoglobin 29.8 pg (27.0-31.0); Mean Platelet Volume 10.3 fL (7.4-10.4); Platelet Count 210 10x3/uL (130-400); RBC Distribution Width 13.6 % (11.5-14.5); Red Blood Cell (RBC) Count 3.83 mill/uL (4.20-5.40); White Blood Cell (WBC) Count 10.3 10x3/uL (4.8-10.8)
[2023-05-13 05:09] LABS: Mean Corpuscular Volume 90.6 fl (78.0-98.0)
[2023-05-13 05:35] LABS: Anion Gap 9 mmol/L (10-20); BUN (Urea Nitrogen) 28 mg/dL (9.8-20.1); Calc. Creatinine Clearance 143 mL/min (70-130); Calcium 9.1 mg/dL (7.8-10.44); Carbon Dioxide 24 mmol/L (22-29); Chloride 110 mmol/L (98-107); Cholesterol 161 mg/dl (< 200 Desired); Estimated GFR 71; Glucose 98 mg/dL (70-105); HDL Cholesterol 32 mg/dL (>60 Neg Risk); LDL Cholesterol, Calculated 96 mg/dL; Potassium 3.7 mmol/L (3.5-5.1); Sodium 139 mmol/L (136-145); Triglycerides 165 mg/dL (Less than 150)
[2023-05-13 07:47] LABS: Glucose 100 mg/dL (70-105)
[2023-05-13] MEDS: Ondansetron ODT 4 MG TAB PO PRN ×2 (08:20→13:04)
[2023-05-13] MEDS: Sertraline 25 MG TAB PO SCH (08:23)
[2023-05-13] MEDS: DULoxetine 60 MG CAP PO SCH (08:23)
[2023-05-13] MEDS: Insulin NPH Human Isophane 100 UNITS/ML (10 ML VIAL) SQ SCH (08:24)
[2023-05-13] MEDS ORDERED: Regadenoson 0.4 MG/5 ML SYRINGE ONE (08:45)
[2023-05-13] MEDS ORDERED: Losartan 25 MG TAB PO SCH ×3 (09:00→09:15)
[2023-05-13] MEDS: Acetaminophen 325 MG TAB PO PRN (10:39)
[2023-05-13 13:01] LABS: Glucose 145 mg/dL (70-105)
[2023-05-13 18:00] LABS: Glucose 211 mg/dL (70-105)
[2023-05-13] MEDS: Atorvastatin Calcium 40 MG TAB PO SCH (20:40)
[2023-05-13] MEDS: traZODone HCl 50 MG TAB PO SCH (20:40)
[2023-05-13 22:54] LABS: Glucose 178 mg/dL (70-105)
[2023-05-14 05:23] LABS: #Basophils 0.1 thou/uL (0.0-0.2); #Eosinphils 0.2 thou/uL (0.0-0.7); #Monocytes 0.7 thou/uL (0.11-0.59); #Neutrophils 5.5 thou/uL (1.40-6.50); %Basophils 0.7 % (0.0-1.0); %Eosinophils 2.3 % (0.0-10.0); %Lymphocytes 36.6 % (21.0-51.0); %Monocytes 6.8 % (0.0-10.0); %Neutrophils 53.4 % (42.0-75.0); Hematocrit 34.1 % (36.0-47.0); Hemoglobin 11.4 g/dL (12.0-16.0); Mean Corpuscular HGB CONC 33.4 g/dL (32.0-36.0); Mean Corpuscular Hemoglobin 29.8 pg (27.0-31.0); Mean Corpuscular Volume 89.3 fl (78.0-98.0); Platelet Count 208 10x3/uL (130-400); RBC Distribution Width 13.4 % (11.5-14.5); Red Blood Cell (RBC) Count 3.82 mill/uL (4.20-5.40); White Blood Cell (WBC) Count 10.2 10x3/uL (4.8-10.8)
[2023-05-14 05:53] LABS: Anion Gap 8 mmol/L (10-20); BUN (Urea Nitrogen) 23 mg/dL (9.8-20.1); Calc. Creatinine Clearance 145 mL/min (70-130); Calcium 9.1 mg/dL (7.8-10.44); Carbon Dioxide 26 mmol/L (22-29); Chloride 107 mmol/L (98-107); Estimated GFR 72; Glucose 134 mg/dL (70-105); Potassium 4.1 mmol/L (3.5-5.1); Sodium 137 mmol/L (136-145)
[2023-05-14 08:18] LABS: Glucose 139 mg/dL (70-105)
[2023-05-14] MEDS ORDERED: Amlodipine 5 MG TAB PO SCH ×2 (09:00→16:30)
[2023-05-14] MEDS: DULoxetine 60 MG CAP PO SCH (09:39)
[2023-05-14] MEDS: Losartan 25 MG TAB PO SCH (09:40)
[2023-05-14] MEDS: Sertraline 25 MG TAB PO SCH (09:40)
[2023-05-14] MEDS: Insulin NPH Human Isophane 100 UNITS/ML (10 ML VIAL) SQ SCH ×2 (10:55→21:10)
[2023-05-14 13:41] LABS: Glucose 144 mg/dL (70-105)
[2023-05-14] MEDS: traZODone HCl 50 MG TAB PO SCH (21:09)
[2023-05-14] MEDS: Atorvastatin Calcium 40 MG TAB PO SCH (21:09)
[2023-05-14] MEDS: Acetaminophen 325 MG TAB PO PRN (21:10)
[2023-05-15 06:04] LABS: #Basophils 0.1 thou/uL (0.0-0.2); #Eosinphils 0.2 thou/uL (0.0-0.7); #Monocytes 0.7 thou/uL (0.11-0.59); %Basophils 0.7 % (0.0-1.0); %Eosinophils 2.5 % (0.0-10.0); %Lymphocytes 36.1 % (21.0-51.0); %Monocytes 7.2 % (0.0-10.0); %Neutrophils 53.4 % (42.0-75.0); Hematocrit 33.4 % (36.0-47.0); Hemoglobin 11.1 g/dL (12.0-16.0); Mean Corpuscular HGB CONC 33.2 g/dL (32.0-36.0); Mean Corpuscular Hemoglobin 29.8 pg (27.0-31.0); Mean Corpuscular Volume 89.5 fl (78.0-98.0); Mean Platelet Volume 10.3 fL (7.4-10.4); Platelet Count 216 10x3/uL (130-400); RBC Distribution Width 13.5 % (11.5-14.5); Red Blood Cell (RBC) Count 3.73 mill/uL (4.20-5.40); White Blood Cell (WBC) Count 9.4 10x3/uL (4.8-10.8)
[2023-05-15 06:42] LABS: Anion Gap 7 mmol/L (10-20); BUN (Urea Nitrogen) 19 mg/dL (9.8-20.1); Calc. Creatinine Clearance 157 mL/min (70-130); Calcium 9.1 mg/dL (7.8-10.44); Carbon Dioxide 28 mmol/L (22-29); Chloride 106 mmol/L (98-107); Estimated GFR 79; Glucose 130 mg/dL (70-105); Potassium 3.7 mmol/L (3.5-5.1); Sodium 137 mmol/L (136-145)
[2023-05-15] MEDS ORDERED: Amlodipine 5 MG TAB PO SCH (07:37)
[2023-05-15] MEDS: DULoxetine 60 MG CAP PO SCH (08:37)
[2023-05-15] MEDS: Losartan 25 MG TAB PO SCH (08:37)
[2023-05-15] MEDS: Amlodipine 10 MG TAB PO SCH (08:37)
[2023-05-15] MEDS: Sertraline 25 MG TAB PO SCH (08:37)
[2023-05-15] MEDS: Insulin NPH Human Isophane 100 UNITS/ML (10 ML VIAL) SQ SCH ×2 (08:38→21:08)
[2023-05-15] MEDS ORDERED: Gabapentin 100 MG CAP PO SCH (13:15)
[2023-05-15] MEDS: Nitroglycerin 0.4 MG TAB (25 Tab Bottle) SL PRN ×2 (19:39→19:46)
[2023-05-15] MEDS: Atorvastatin Calcium 40 MG TAB PO SCH (21:07)
[2023-05-15] MEDS: traZODone HCl 50 MG TAB PO SCH (21:07)
[2023-05-15] MEDS: Acetaminophen 325 MG TAB PO PRN (21:12)
[2023-05-16 04:53] LABS: #Basophils 0.1 thou/uL (0.0-0.2); #Eosinphils 0.2 thou/uL (0.0-0.7); #Monocytes 0.6 thou/uL (0.11-0.59); #Neutrophils 4.7 thou/uL (1.40-6.50); %Basophils 0.7 % (0.0-1.0); %Eosinophils 2.7 % (0.0-10.0); %Lymphocytes 34.8 % (21.0-51.0); %Monocytes 7.2 % (0.0-10.0); %Neutrophils 54.5 % (42.0-75.0); Hematocrit 35.1 % (36.0-47.0); Hemoglobin 11.9 g/dL (12.0-16.0); Mean Corpuscular HGB CONC 33.9 g/dL (32.0-36.0); Mean Corpuscular Hemoglobin 29.9 pg (27.0-31.0); Mean Corpuscular Volume 88.2 fl (78.0-98.0); Mean Platelet Volume 10.5 fL (7.4-10.4); Platelet Count 218 10x3/uL (130-400); RBC Distribution Width 13.2 % (11.5-14.5); Red Blood Cell (RBC) Count 3.98 mill/uL (4.20-5.40); White Blood Cell (WBC) Count 8.6 10x3/uL (4.8-10.8)
[2023-05-16 05:23] LABS: Anion Gap 10 mmol/L (10-20); BUN (Urea Nitrogen) 16 mg/dL (9.8-20.1); Calc. Creatinine Clearance 180 mL/min (70-130); Calcium 9.3 mg/dL (7.8-10.44); Carbon Dioxide 25 mmol/L (22-29); Chloride 107 mmol/L (98-107); Estimated GFR 93; Glucose 101 mg/dL (70-105); Potassium 4.1 mmol/L (3.5-5.1); Sodium 138 mmol/L (136-145)
[2023-05-16] MEDS ORDERED: Lidocaine 4% Patch TD PRN (08:57)
[2023-05-16] MEDS: Nitroglycerin 0.4 MG TAB (25 Tab Bottle) SL PRN ×2 (09:12→15:53)
[2023-05-16] MEDS: DULoxetine 60 MG CAP PO SCH (09:12)
[2023-05-16] MEDS: Sertraline 25 MG TAB PO SCH (09:12)
[2023-05-16] MEDS: Gabapentin 100 MG CAP PO SCH (09:13)
[2023-05-16] MEDS: Insulin NPH Human Isophane 100 UNITS/ML (10 ML VIAL) SQ SCH ×2 (09:13→21:38)
[2023-05-16] MEDS: Amlodipine 10 MG TAB PO SCH (09:13)
[2023-05-16] MEDS: Losartan 25 MG TAB PO SCH (09:13)
[2023-05-16] MEDS ORDERED: Communication Order-Pharmacy FS SCH (17:15)
[2023-05-16] MEDS ORDERED: Transdermal Patch Removal TOP SCH (21:00)
[2023-05-16] MEDS: traZODone HCl 50 MG TAB PO SCH (21:34)
[2023-05-16] MEDS: Atorvastatin Calcium 40 MG TAB PO SCH (21:39)
[2023-05-17] MEDS ORDERED: Sodium Chloride 0.9% 500 ML IV SCH ×2 (00:01→09:00)
[2023-05-17 04:50] LABS: #Basophils 0.1 thou/uL (0.0-0.2); #Eosinphils 0.2 thou/uL (0.0-0.7); #Monocytes 0.8 thou/uL (0.11-0.59); #Neutrophils 5.4 thou/uL (1.40-6.50); %Basophils 0.7 % (0.0-1.0); %Eosinophils 2.3 % (0.0-10.0); %Lymphocytes 35.3 % (21.0-51.0); %Monocytes 7.7 % (0.0-10.0); %Neutrophils 53.8 % (42.0-75.0); Hematocrit 35.2 % (36.0-47.0); Hemoglobin 11.7 g/dL (12.0-16.0); Mean Corpuscular HGB CONC 33.2 g/dL (32.0-36.0); Mean Corpuscular Hemoglobin 29.8 pg (27.0-31.0); Mean Corpuscular Volume 89.6 fl (78.0-98.0); Mean Platelet Volume 10.3 fL (7.4-10.4); Platelet Count 219 10x3/uL (130-400); RBC Distribution Width 13.3 % (11.5-14.5); Red Blood Cell (RBC) Count 3.93 mill/uL (4.20-5.40); White Blood Cell (WBC) Count 10.1 10x3/uL (4.8-10.8)
[2023-05-17 05:15] LABS: Anion Gap 11 mmol/L (10-20); BUN (Urea Nitrogen) 17 mg/dL (9.8-20.1); Calc. Creatinine Clearance 175 mL/min (70-130); Calcium 9.3 mg/dL (7.8-10.44); Carbon Dioxide 26 mmol/L (22-29); Chloride 109 mmol/L (98-107); Estimated GFR 90; Glucose 85 mg/dL (70-105); Potassium 3.7 mmol/L (3.5-5.1); Sodium 142 mmol/L (136-145)
[2023-05-17] MEDS ORDERED: fentaNYL 50 mcg/mL 1 mL Vial ONE ×2 (06:54→08:41)
[2023-05-17] MEDS ORDERED: Midazolam HCl 2 mg/2 ml Vial ONE ×2 (06:55→08:41)
[2023-05-17] MEDS ORDERED: Heparin 10,000 UNITS/ 10 ML VIAL ONE (06:55)
[2023-05-17] MEDS ORDERED: Nitroglycerin 50 MG/250 ML BOT 250 ML ONE (06:55)
[2023-05-17] MEDS ORDERED: Verapamil 5 MG/2 ML VIAL ONE (06:55)
[2023-05-17] MEDS ORDERED: Lidocaine 1% (PF) 30 ML VIAL ONE (06:55)
[2023-05-17] MEDS ORDERED: Sodium Chloride 0.9% 200 ML IV PRN (08:59)
[2023-05-17] MEDS ORDERED: Acetaminophen/Codeine 30-300mg Tablet PO PRN (08:59)
[2023-05-17] MEDS: Gabapentin 100 MG CAP PO SCH (10:07)
[2023-05-17] MEDS: DULoxetine 60 MG CAP PO SCH (10:07)
[2023-05-17] MEDS: Losartan 25 MG TAB PO SCH (10:09)
[2023-05-17] MEDS: Sertraline 25 MG TAB PO SCH (10:09)
[2023-05-17] MEDS ORDERED: Iopamidol 370 76% 100 ML VIAL ONE (10:17)
[2023-05-17] MEDS: Amlodipine 10 MG TAB PO SCH (14:34)
[2023-05-17 15:55] VITALS: BP 145/65; TEMP 98.3
== END 2023-05-17 18:39 | disposition home or self-care (01) | DRG 287 ==
LOC: ERS 11:12 → 2SW 15:45 → OBSVTOIN 05-14 15:08
PROVIDERS: ADMIT Family Medicine; ATTEND Family Medicine
PROC: 4A023N7 Measurement of Cardiac Sampling and Pressure, Left Heart, Percutaneous Approach (ICD-10-PCS; principal; 2023-05-17)
PROC: B2111ZZ Fluoroscopy of Multiple Coronary Arteries using Low Osmolar Contrast (ICD-10-PCS; 2023-05-17)
PROC: B2151ZZ Fluoroscopy of Left Heart using Low Osmolar Contrast (ICD-10-PCS; 2023-05-17)
DX: I16.0 Hypertensive urgency (principal); Z68.42 Body mass index [BMI] 45.0-49.9, adult; F41.9 Anxiety disorder, unspecified; F32.A Depression, unspecified; E66.9 Obesity, unspecified; I10 Essential (primary) hypertension; E11.319 Type 2 diabetes mellitus with unspecified diabetic retinopathy without macular edema; E11.40 Type 2 diabetes mellitus with diabetic neuropathy, unspecified; R22.1 Localized swelling, mass and lump, neck; G89.29 Other chronic pain; Z79.899 Other long term (current) drug therapy; Z79.4 Long term (current) use of insulin; Z90.49 Acquired absence of other specified parts of digestive tract; Z98.51 Tubal ligation status; Z98.890 Other specified postprocedural states
CPT/HCPCS: 36415; 36416; 71045; 71275; 74174; 78452; 80048; 80053; 80061; 82947; 83036; 84443; 84484; 85025; 93005; 93017; 93458; 96372; 96374; 96375; 96376; 99152; A9500; C1769; G0378; J1644; J1650; J1815; J2001; J2250; J2270; J2405; J2785; J3010; J7030; Q0162; Q9967

== ENCOUNTER 2023-07-01 05:57 | Day surgery (SDC) | payer BC ==
[2023-06-30 13:22] VITALS: BMI 48.2
[2023-07-01] MEDS ORDERED: PROPOFOL 200 MG/20 ML VIAL ONE (08:41)
[2023-07-01] MEDS ORDERED: Lidocaine 1% PF 5 ML VIAL ONE (08:41)
== END 2023-07-01 09:37 | disposition home or self-care (01) ==
LOC: SDC 05:57
PROVIDERS: ATTEND Internal Medicine
PROC: 0DJD8ZZ Inspection of Lower Intestinal Tract, Via Natural or Artificial Opening Endoscopic (ICD-10-PCS; principal; 2023-07-01)
DX: Z12.11 Encounter for screening for malignant neoplasm of colon (principal); E11.9 Type 2 diabetes mellitus without complications; E78.5 Hyperlipidemia, unspecified; I10 Essential (primary) hypertension; E66.9 Obesity, unspecified; Z68.42 Body mass index [BMI] 45.0-49.9, adult; Z79.899 Other long term (current) drug therapy; Z79.4 Long term (current) use of insulin
CPT/HCPCS: 36416; J2704

== ENCOUNTER 2023-08-20 17:24 | Emergency (ER) | payer BC ==
[2023-08-20 18:30] LABS: #Eosinphils 0.2 thou/uL (0.0-0.7); #Monocytes 0.5 thou/uL (0.11-0.59); #Neutrophils 3.2 thou/uL (1.40-6.50); %Basophils 0.4 % (0.0-1.0); %Lymphocytes 49.1 % (21.0-51.0); %Monocytes 6.5 % (0.0-10.0); %Neutrophils 41.7 % (42.0-75.0); Hematocrit 38.5 % (36.0-47.0); Hemoglobin 13.2 g/dL (12.0-16.0); Mean Corpuscular HGB CONC 34.3 g/dL (32.0-36.0); Mean Corpuscular Hemoglobin 29.2 pg (27.0-31.0); Mean Corpuscular Volume 85.2 fl (78.0-98.0); Mean Platelet Volume 10.2 fL (7.4-10.4); Platelet Count 211 10x3/uL (130-400); RBC Distribution Width 13.3 % (11.5-14.5); Red Blood Cell (RBC) Count 4.52 mill/uL (4.20-5.40); White Blood Cell (WBC) Count 7.7 10x3/uL (4.8-10.8)
[2023-08-20 18:53] LABS: ALT (SGPT) 20 U/L (8-55); AST (SGOT) 24 U/L (5-34); Albumin 3.3 g/dL (3.5-5.0); Alkaline Phosphatase 84 U/L (40-110); Anion Gap 12 mmol/L (10-20); BUN (Urea Nitrogen) 28 mg/dL (9.8-20.1); Bilirubin, Total 0.3 mg/dL (0.2-1.2); Calc. Creatinine Clearance 0 mL/min (70-130); Calcium 8.6 mg/dL (7.8-10.44); Carbon Dioxide 24 mmol/L (22-29); Chloride 105 mmol/L (98-107); Estimated GFR 75; Globulin 3.7 g/dL (2.4-3.5); Glucose 154 mg/dL (70-105); Potassium 4.4 mmol/L (3.5-5.1); Sodium 137 mmol/L (136-145)
[2023-08-20 19:02] LABS: Troponin I Less than 0.010 ng/mL (< 0.028)
[2023-08-20 20:20] LABS: SARS-CoV-2 NAA Rapid Test Not Detected (NotDetected)
== END 2023-08-20 19:25 | disposition home or self-care (01) ==
LOC: ERS 17:24
DX: R05.3 Chronic cough (principal); R59.1 Generalized enlarged lymph nodes; E11.9 Type 2 diabetes mellitus without complications; I10 Essential (primary) hypertension; Z20.822 Contact with and (suspected) exposure to COVID-19
CPT/HCPCS: 36415; 71045; 80053; 83605; 84484; 85025; 87040; 93005

== ENCOUNTER 2023-08-21 09:02 | Emergency (ER) | payer BC ==
[2023-08-21] MEDS ORDERED: Azithromycin 250 MG TAB ONE (09:53)
[2023-08-21] MEDS ORDERED: Dexamethasone 4 MG TAB ONE (09:55)
== END 2023-08-21 10:19 | disposition home or self-care (01) ==
LOC: ERS 09:02
DX: J06.9 Acute upper respiratory infection, unspecified (principal); R59.0 Localized enlarged lymph nodes; E11.9 Type 2 diabetes mellitus without complications; I10 Essential (primary) hypertension
CPT/HCPCS: 99283; J8540

== ENCOUNTER 2023-10-21 13:05 | Emergency (ER) | payer BC ==
[2023-10-21 14:15] LABS: #Basophils 0.1 thou/uL (0.0-0.2); #Eosinphils 0.3 thou/uL (0.0-0.7); #Monocytes 0.6 thou/uL (0.11-0.59); #Neutrophils 4.6 thou/uL (1.40-6.50); %Basophils 0.6 % (0.0-1.0); %Eosinophils 3.3 % (0.0-10.0); %Lymphocytes 36.9 % (21.0-51.0); %Monocytes 6.7 % (0.0-10.0); %Neutrophils 52.4 % (42.0-75.0); Hematocrit 36.6 % (36.0-47.0); Hemoglobin 12.3 g/dL (12.0-16.0); Mean Corpuscular HGB CONC 33.6 g/dL (32.0-36.0); Mean Corpuscular Hemoglobin 29.6 pg (27.0-31.0); Mean Corpuscular Volume 88.2 fl (78.0-98.0); Mean Platelet Volume 9.8 fL (7.4-10.4); Platelet Count 187 10x3/uL (130-400); RBC Distribution Width 14.2 % (11.5-14.5); Red Blood Cell (RBC) Count 4.15 mill/uL (4.20-5.40); White Blood Cell (WBC) Count 8.7 10x3/uL (4.8-10.8)
[2023-10-21] MEDS ORDERED: Nitroglycerin 2% Ointment 1 INCH/1 GM Packet ONE (14:31)
[2023-10-21] MEDS ORDERED: Amlodipine 5 MG TAB ONE (14:31)
[2023-10-21] MEDS ORDERED: Aspirin Chewable 81 MG TAB ONE (14:32)
[2023-10-21 14:38] LABS: ALT (SGPT) 18 U/L (8-55); AST (SGOT) 19 U/L (5-34); Albumin 3.3 g/dL (3.5-5.0); Alkaline Phosphatase 85 U/L (40-110); Anion Gap 9 mmol/L (10-20); BUN (Urea Nitrogen) 24 mg/dL (9.8-20.1); Bilirubin, Total 0.2 mg/dL (0.2-1.2); Calc. Creatinine Clearance 0 mL/min (70-130); Calcium 9.1 mg/dL (7.8-10.44); Carbon Dioxide 28 mmol/L (22-29); Chloride 108 mmol/L (98-107); Estimated GFR 80; Globulin 3.8 g/dL (2.4-3.5); Glucose 132 mg/dL (70-105); Potassium 4.1 mmol/L (3.5-5.1); Protein, Total 7.1 g/dL (6.0-8.3); Sodium 141 mmol/L (136-145)
[2023-10-21 14:42] LABS: Troponin I 0.019 ng/mL (< 0.028)
[2023-10-21] MEDS ORDERED: Ketorolac Tromethamine 30 MG (1 mL) VIAL ONE (16:11)
== END 2023-10-21 16:40 | disposition home or self-care (01) ==
LOC: ERS 13:05
DX: R07.9 Chest pain, unspecified (principal); M54.6 Pain in thoracic spine; I10 Essential (primary) hypertension; E11.9 Type 2 diabetes mellitus without complications; Z55.6 Problems related to health literacy; Z75.3 Unavailability and inaccessibility of health-care facilities; Z79.4 Long term (current) use of insulin; Z79.899 Other long term (current) drug therapy
CPT/HCPCS: 36415; 71046; 80053; 83690; 84484; 85025; 85379; 93005; 96372; J1885

== ENCOUNTER 2023-10-23 16:20 | Emergency (ER) | payer BC ==
[~2023-10-23 16:20] MED LIST changes: +Magnevist 469MG/ML 20 ML VIAL ONE
[2023-10-23] MEDS ORDERED: Morphine 4 MG/ML VIAL ONE ×3 (17:09→19:51)
[2023-10-23 17:26] LABS: #Basophils 0.1 thou/uL (0.0-0.2); #Eosinphils 0.3 thou/uL (0.0-0.7); #Monocytes 0.4 thou/uL (0.11-0.59); #Neutrophils 4.8 thou/uL (1.40-6.50); %Basophils 0.6 % (0.0-1.0); %Eosinophils 3.5 % (0.0-10.0); %Lymphocytes 34.1 % (21.0-51.0); %Monocytes 4.7 % (0.0-10.0); Hematocrit 39.5 % (36.0-47.0); Hemoglobin 13.1 g/dL (12.0-16.0); Mean Corpuscular HGB CONC 33.2 g/dL (32.0-36.0); Mean Corpuscular Hemoglobin 29.1 pg (27.0-31.0); Mean Corpuscular Volume 87.8 fl (78.0-98.0); Mean Platelet Volume 10.4 fL (7.4-10.4); Platelet Count 225 10x3/uL (130-400); RBC Distribution Width 14.4 % (11.5-14.5); White Blood Cell (WBC) Count 8.3 10x3/uL (4.8-10.8)
[2023-10-23 18:02] LABS: SARS-CoV-2 NAA Rapid Test Not Detected (NotDetected)
[2023-10-23 18:42] LABS: ALT (SGPT) 21 U/L (8-55); AST (SGOT) 26 U/L (5-34); Albumin 3.7 g/dL (3.5-5.0); Alkaline Phosphatase 100 U/L (40-110); Anion Gap 13 mmol/L (10-20); BUN (Urea Nitrogen) 39 mg/dL (9.8-20.1); Bilirubin, Total 0.4 mg/dL (0.2-1.2); Calc. Creatinine Clearance 0 mL/min (70-130); Calcium 9.1 mg/dL (7.8-10.44); Carbon Dioxide 23 mmol/L (22-29); Chloride 109 mmol/L (98-107); Estimated GFR 45; Globulin 3.5 g/dL (2.4-3.5); Glucose 149 mg/dL (70-105); Potassium 4.7 mmol/L (3.5-5.1); Protein, Total 7.2 g/dL (6.0-8.3); Sodium 140 mmol/L (136-145)
[2023-10-23 18:43] LABS: CRP (Inflammatory) 1.01 mg/dL (= or < 0.5)
[2023-10-23 18:46] LABS: Troponin I 0.014 ng/mL (< 0.028)
[2023-10-23] MEDS ORDERED: Ketorolac Tromethamine 30 MG (1 mL) VIAL ONE (23:54)
== END 2023-10-24 00:04 | disposition home or self-care (01) ==
LOC: ERS 16:20
DX: M54.6 Pain in thoracic spine (principal); E11.9 Type 2 diabetes mellitus without complications; I10 Essential (primary) hypertension; Z79.899 Other long term (current) drug therapy
CPT/HCPCS: 71045; 71275; 72156; 72157; 72158; 80053; 83690; 84484; 85025; 86140; 93005; 96372; 96374; 96376; A9579; J1885; J2270; Q9967

== ENCOUNTER 2024-01-31 15:34 | Emergency (ER) | payer BC, OTHER ==
[2024-01-31 15:52] LABS: #Basophils 0.06 10x3/uL (0.0-0.2); %Basophils 0.6 % (0.0-1.0); %Eosinophils 2.2 % (0.0-10.0); %Lymphocytes 34.6 % (21.0-51.0); %Monocytes 8.5 % (0.0-10.0); %Neutrophils 53.9 % (42.0-75.0); Hematocrit 39.8 % (36.0-47.0); Hemoglobin 13.7 g/dL (12.0-16.0); Mean Corpuscular HGB CONC 34.4 g/dL (32.0-36.0); Mean Corpuscular Hemoglobin 30.4 pg (27.0-31.0); Mean Corpuscular Volume 88.4 fL (78.0-98.0); Mean Platelet Volume 9.6 fL (7.4-10.4); Platelet Count 250 10x3/uL (130-400); RBC Distribution Width 13.9 % (11.5-14.5)
[2024-01-31 16:06] LABS: ALT (SGPT) 12 U/L (8-55); AST (SGOT) 16 U/L (5-34); Albumin 3.4 g/dL (3.5-5.0); Alkaline Phosphatase 87 U/L (40-110); Anion Gap 15 mmol/L (10-20); BUN (Urea Nitrogen) 31 mg/dL (9.8-20.1); Bilirubin, Total 0.3 mg/dL (0.2-1.2); Calc. Creatinine Clearance 0 mL/min (70-130); Carbon Dioxide 20 mmol/L (22-29); Chloride 112 mmol/L (98-107); Estimated GFR 47; Globulin 4.8 g/dL (2.4-3.5); Glucose 64 mg/dL (70-105); Potassium 3.6 mmol/L (3.5-5.1); Protein, Total 8.2 g/dL (6.0-8.3); Sodium 143 mmol/L (136-145)
[2024-01-31] MEDS ORDERED: Dextrose 10% in Water 250 ML ONE (16:18)
[2024-01-31 16:26] LABS: Troponin I Less than 0.010 ng/mL (< 0.028)
[2024-01-31 16:59] LABS: Influenza A by NAA Not Detected (NotDetected); Influenza B by NAA Not Detected (NotDetected); SARS-CoV-2 NAA Rapid Test Not Detected (NotDetected)
[2024-01-31] MEDS ORDERED: Acetaminophen 500 MG TAB ONE (18:11)
[2024-01-31 20:06] LABS: Bacteria/HPF 3+ HPF (None Seen); Bilirubin Negative (Negative); Blood, Urine 2+ (Negative); CAUTI Indications for Culture Acute Hematuria; Clarity Turbid (Clear); Glucose, Urine (Dipstick) Normal (Negative); Ketone, Urine Negative (Negative); Leukocyte 250 Leu/uL (Negative); Nitrite 1+ (Negative); Protein, Urine (Dipstick) 100 mg/dL (Neg-Trace); Specific Gravity, Urine 1.021 (1.002-1.036); Squamous Epithelial 21-50 HPF (0-3); Urobilinogen Normal mg/dL (Less than 2); WBC/HPF 21-50 HPF (0-3); pH, Urine 5.5 (5.0-9.0)
[2024-01-31 20:08] LABS: Urine Culture Reflex Yes Yes
[2024-01-31] MEDS ORDERED: Sodium Chloride 0.9% 100 ML ONE (20:43)
[2024-01-31] MEDS ORDERED: cefTRIAXone (ROCEPHIN) 2 GM VIAL ONE (20:43)
== END 2024-01-31 21:30 | disposition home or self-care (01) ==
LOC: EDBD 15:34 → ERS 15:34
DX: N39.0 Urinary tract infection, site not specified (principal); I10 Essential (primary) hypertension; E11.9 Type 2 diabetes mellitus without complications; Z79.4 Long term (current) use of insulin; Z79.899 Other long term (current) drug therapy
CPT/HCPCS: 36416; 70450; 71045; 80053; 81001; 83735; 84484; 85025; 87077; 87086; 87186; 93005; 94760; 96361; 96365; 96375; J0696; J3490

== ENCOUNTER 2024-08-19 15:43 | Observation (INO) | payer BC, MEDICARE, OTHER ==
[2024-08-19] MEDS ORDERED: hydrALAZINE 20 MG/ML VIAL ONE (16:30)
[2024-08-19 16:52] LABS: Actual Bicarbonate (HCO3v) 22.8 mEq/L (22-28); Analyzer IN Cardio ER; Base Excess -0.3 mEq/L (-2.0 to +3.0); Calcium, Ionized (venous) 1.12 mmol/L (1.16-1.32); Chloride (VBG) 105 mmol/L (98-106); Hematocrit-VBG 41 % (36.0-47.0); Hemoglobin (Hb) 13.8 g/dL (11.7-16.0); Potassium (VBG) 4.18 mmol/L (3.70-5.30); Sodium 140 mmol/L (133-146); pH (venous) 7.458 (7.32-7.43)
[2024-08-19 16:58] LABS: Troponin I Less than 0.010 ng/mL (< 0.028)
[2024-08-19 17:04] LABS: #Basophils 0.09 10x3/uL (0.0-0.2); %Basophils 0.9 % (0.0-1.0); %Eosinophils 3.7 % (0.0-10.0); %Lymphocytes 34.4 % (21.0-51.0); %Neutrophils 54.8 % (42.0-75.0); Hemoglobin 13.4 g/dL (12.0-16.0); Mean Corpuscular HGB CONC 34.4 g/dL (32.0-36.0); Mean Corpuscular Hemoglobin 29.3 pg (27.0-31.0); Mean Corpuscular Volume 85.3 fL (78.0-98.0); Mean Platelet Volume 9.8 fL (7.4-10.4); Platelet Count 219 10x3/uL (130-400); RBC Distribution Width 13.6 % (11.5-14.5); Red Blood Cell (RBC) Count 4.57 mill/uL (4.20-5.40)
[2024-08-19 17:05] LABS: ALT (SGPT) 13 U/L (8-55); AST (SGOT) 27 U/L (5-34); Albumin 3.1 g/dL (3.5-5.0); Alkaline Phosphatase 92 U/L (40-110); Anion Gap 15 mmol/L (10-20); BUN (Urea Nitrogen) 23 mg/dL (9.8-20.1); Bilirubin, Total 0.3 mg/dL (0.2-1.2); Calc. Creatinine Clearance 0 mL/min (70-130); Calcium 8.8 mg/dL (7.8-10.44); Carbon Dioxide 20 mmol/L (22-29); Chloride 108 mmol/L (98-107); Estimated GFR 89; Globulin 4.5 g/dL (2.4-3.5); Glucose 161 mg/dL (70-105); Magnesium 1.8 mg/dL (1.6-2.6); Potassium 4.6 mmol/L (3.5-5.1); Protein, Total 7.6 g/dL (6.0-8.3); Sodium 138 mmol/L (136-145)
[2024-08-19 18:19] LABS: Bilirubin Negative (Negative); Blood, Urine Large (Negative); Glucose, Urine (Dipstick) Negative (Negative); Ketone, Urine Negative (Negative); Leukocyte Trace (Negative); Nitrite Negative (Negative); Protein, Urine (Dipstick) > or equal to 300 mg/dL (Neg-Trace); Urobilinogen 0.2 mg/dL (Less than 2)
[2024-08-19 18:20] LABS: Clarity Clear (Clear); Specific Gravity, Urine 1.024 (1.002-1.036)
[2024-08-19 18:21] LABS: CAUTI Indications for Culture Alt mental st,lethar; RBC/HPF 0-3 HPF (0-3)
[2024-08-19 18:22] LABS: Bacteria/HPF Rare-Few HPF (None Seen)
[2024-08-19 18:23] LABS: Urine Culture Reflex No No
[2024-08-19] MEDS ORDERED: Acetaminophen 500 MG TAB ONE (18:40)
[2024-08-19] MEDS ORDERED: Ketorolac Tromethamine 30 MG (1 mL) VIAL ONE (18:40)
[2024-08-19] MEDS ORDERED: Aspirin Chewable 81 MG TAB ONE (19:51)
[2024-08-19] MEDS ORDERED: Glucagon 1 MG/ML KIT IM PRN (20:27)
[2024-08-19] MEDS ORDERED: Dextrose 5% in Water 1,000 ML IV PRN (20:27)
[2024-08-19] MEDS ORDERED: Dextrose 50% Abboject 50 ML SYRINGE SLOW IVP PRN (20:27)
[2024-08-19] MEDS ORDERED: Acetaminophen 325 MG TAB PO PRN (20:27)
[2024-08-19] MEDS ORDERED: Insulin Lispro 100 UNIT/ML 10 ML VIAL SC PRN ×2 (20:27)
[2024-08-19] MEDS ORDERED: Labetalol HCl 100 MG/20 ML VIAL SLOW IVP PRN (20:29)
[2024-08-19 23:42] VITALS: BMI 49.2
[2024-08-19] MEDS: traMADol HCl 50 MG TAB PO SCH (23:45)
[2024-08-20 04:26] LABS: #Basophils 0.08 10x3/uL (0.0-0.2); %Basophils 0.9 % (0.0-1.0); %Eosinophils 3.3 % (0.0-10.0); %Lymphocytes 43.6 % (21.0-51.0); %Monocytes 6.2 % (0.0-10.0); %Neutrophils 45.8 % (42.0-75.0); Hematocrit 34.7 % (36.0-47.0); Hemoglobin 11.7 g/dL (12.0-16.0); Mean Corpuscular HGB CONC 33.7 g/dL (32.0-36.0); Mean Corpuscular Hemoglobin 29.2 pg (27.0-31.0); Mean Corpuscular Volume 86.5 fL (78.0-98.0); Mean Platelet Volume 10.2 fL (7.4-10.4); Platelet Count 217 10x3/uL (130-400); RBC Distribution Width 13.8 % (11.5-14.5); Red Blood Cell (RBC) Count 4.01 mill/uL (4.20-5.40)
[2024-08-20 04:44] LABS: Anion Gap 13 mmol/L (10-20); BUN (Urea Nitrogen) 27 mg/dL (9.8-20.1); Calc. Creatinine Clearance 156 mL/min (70-130); Calcium 8.5 mg/dL (7.8-10.44); Carbon Dioxide 21 mmol/L (22-29); Cardiac Risk 5.4 (Less than 4.5); Chloride 108 mmol/L (98-107); Cholesterol 194 mg/dl (< 200 Desired); Estimated GFR 78; Glucose 164 mg/dL (70-105); HDL Cholesterol 36 mg/dL (>60 Neg Risk); LDL Cholesterol, Calculated 127 mg/dL; Potassium 3.9 mmol/L (3.5-5.1); Sodium 138 mmol/L (136-145); Triglycerides 155 mg/dL (Less than 150)
[2024-08-20] MEDS: Acetaminophen 325 MG TAB PO PRN (05:37)
[2024-08-20] MEDS: Sertraline 100 MG TAB PO SCH (09:10)
[2024-08-20] MEDS: Atorvastatin Calcium 40 MG TAB PO SCH (09:10)
[2024-08-20] MEDS: Aspirin 81 mg Enteric Coated Tablet PO SCH (09:10)
[2024-08-20] MEDS: Insulin NPH Human Isophane 100 UNITS/ML (10 ML VIAL) SC SCH (09:11)
[2024-08-20] MEDS: Fioricet 325/50/40 mg Tablet PO PRN (10:35)
[2024-08-20] MEDS: hydrALAZINE 20 MG/ML VIAL SLOW IVP PRN (10:56)
[2024-08-20] MEDS: traMADol HCl 50 MG TAB PO PRN (14:05)
[2024-08-20] MEDS: Ondansetron PF 4 MG/2 ML Vial IVP PRN (15:12)
[2024-08-20] MEDS: Amlodipine 10 MG TAB PO SCH (16:21)
[2024-08-20] MEDS: Artificial Tear Ophth Sol 15 ML BOT EA EYE PRN (17:34)
[2024-08-20] MEDS: traZODone HCl 50 MG TAB PO SCH (20:44)
[2024-08-20] MEDS: Losartan 25 MG TAB PO SCH (20:44)
[2024-08-20] MEDS: hydrOXYzine 25 MG TAB PO PRN (20:45)
[2024-08-20] MEDS: Gabapentin 300 MG CAP PO SCH (20:45)
[2024-08-20] MEDS: tiZANidine HCl 4 MG TAB PO PRN (20:46)
[2024-08-21] MEDS: Amlodipine 10 MG TAB PO SCH (08:49)
[2024-08-21 10:39] VITALS: BMI 49.6
[2024-08-21 16:23] VITALS: BP 115/71; TEMP 97.6
== END 2024-08-21 20:35 | disposition home or self-care (01) ==
LOC: ERS 15:43 → 2SE 20:06
PROVIDERS: ADMIT Internal Medicine; ATTEND Family Medicine
DX: H53.8 Other visual disturbances (principal); R51.9 Headache, unspecified; R20.2 Paresthesia of skin; I10 Essential (primary) hypertension; I25.10 Atherosclerotic heart disease of native coronary artery without angina pectoris; E11.319 Type 2 diabetes mellitus with unspecified diabetic retinopathy without macular edema; E78.5 Hyperlipidemia, unspecified; E66.01 Morbid (severe) obesity due to excess calories; F41.9 Anxiety disorder, unspecified; F32.A Depression, unspecified; C53.9 Malignant neoplasm of cervix uteri, unspecified; Z90.49 Acquired absence of other specified parts of digestive tract; Z98.51 Tubal ligation status; Z79.4 Long term (current) use of insulin; Z79.82 Long term (current) use of aspirin; Z79.899 Other long term (current) drug therapy
CPT/HCPCS: 36415; 36416; 70450; 70551; 72141; 80048; 80053; 80061; 81001; 82010; 82805; 83735; 84484; 85025; 93005; 93880; 96374; 96375; 96376; G0378; J0360; J1815; J1885; J2405

== ENCOUNTER 2024-09-05 13:19 | Observation (INO) | payer BC, MEDICARE, OTHER ==
[2024-09-05 15:07] LABS: #Basophils 0.07 10x3/uL (0.0-0.2); %Basophils 0.6 % (0.0-1.0); %Eosinophils 2.3 % (0.0-10.0); %Lymphocytes 26.6 % (21.0-51.0); %Monocytes 5.9 % (0.0-10.0); %Neutrophils 64.3 % (42.0-75.0); Hematocrit 37.9 % (36.0-47.0); Hemoglobin 13.3 g/dL (12.0-16.0); Mean Corpuscular HGB CONC 35.1 g/dL (32.0-36.0); Mean Corpuscular Hemoglobin 29.5 pg (27.0-31.0); Mean Platelet Volume 10.4 fL (7.4-10.4); Platelet Count 225 10x3/uL (130-400); RBC Distribution Width 13.4 % (11.5-14.5); Red Blood Cell (RBC) Count 4.51 mill/uL (4.20-5.40)
[2024-09-05] MEDS ORDERED: Meclizine HCl 25 MG TAB ONE (15:10)
[2024-09-05] MEDS ORDERED: Ondansetron PF 4 MG/2 ML Vial ONE (15:14)
[2024-09-05] MEDS ORDERED: Morphine 4 MG/ML VIAL ONE (15:14)
[2024-09-05 15:24] LABS: ALT (SGPT) 14 U/L (8-55); AST (SGOT) 12 U/L (5-34); Albumin 3.2 g/dL (3.5-5.0); Alkaline Phosphatase 95 U/L (40-110); Anion Gap 13 mmol/L (10-20); BUN (Urea Nitrogen) 25 mg/dL (9.8-20.1); Bilirubin, Total 0.4 mg/dL (0.2-1.2); Calc. Creatinine Clearance 0 mL/min (70-130); Calcium 9.8 mg/dL (7.8-10.44); Carbon Dioxide 23 mmol/L (22-29); Chloride 107 mmol/L (98-107); Estimated GFR 73; Globulin 4.9 g/dL (2.4-3.5); Glucose 228 mg/dL (70-105); Protein, Total 8.1 g/dL (6.0-8.3); Sodium 139 mmol/L (136-145)
[2024-09-05 15:29] LABS: Troponin I 0.012 ng/mL (< 0.028)
[2024-09-05 15:46] LABS: Bacteria/HPF 4+ HPF (None Seen); Bilirubin Negative (Negative); Blood, Urine 2+ (Negative); CAUTI Indications for Culture Pelvic or flank pain; Clarity Turbid (Clear); Glucose, Urine (Dipstick) 30 mg/dL (Negative); Ketone, Urine Negative (Negative); Leukocyte 75 Leu/uL (Negative); Nitrite Negative (Negative); Protein, Urine (Dipstick) 300 mg/dL (Neg-Trace); RBC/HPF 21-50 HPF (0-3); Specific Gravity, Urine 1.023 (1.002-1.036); Squamous Epithelial 0-3 HPF (0-3); Urobilinogen Normal mg/dL (Less than 2); WBC/HPF 21-50 HPF (0-3)
[2024-09-05 15:48] LABS: Urine Culture Reflex Yes Yes
[2024-09-05] MEDS ORDERED: cefTRIAXone (ROCEPHIN) 1 GM VIAL ONE (17:20)
[2024-09-05] MEDS ORDERED: Sodium Chloride 0.9% 100 ML ONE (17:20)
[2024-09-05] MEDS ORDERED: Aspirin Chewable 81 MG TAB ONE (17:20)
[2024-09-05] MEDS ORDERED: Ondansetron ODT 4 MG TAB SL PRN (19:45)
[2024-09-05] MEDS ORDERED: Acetaminophen 325 MG TAB PO PRN (19:45)
[2024-09-05] MEDS ORDERED: Ondansetron PF 4 MG/2 ML Vial IVP PRN ×2 (19:45→20:54)
[2024-09-05] MEDS ORDERED: Ondansetron ODT 4 MG TAB PO PRN (20:54)
[2024-09-05] MEDS ORDERED: Acetaminophen 650 MG Suppository PR PRN (20:54)
[2024-09-05] MEDS ORDERED: Dextrose 5% in Water 1,000 ML IV PRN (20:55)
[2024-09-05] MEDS ORDERED: Insulin Lispro 100 UNIT/ML 10 ML VIAL SC PRN (20:55)
[2024-09-05] MEDS ORDERED: Dextrose 50% Abboject 50 ML SYRINGE SLOW IVP PRN (20:55)
[2024-09-05] MEDS ORDERED: Glucagon 1 MG/ML KIT IM PRN (20:55)
[2024-09-05] MEDS: hydrOXYzine 25 MG TAB PO PRN (21:57)
[2024-09-05] MEDS: Famotidine 20 MG TAB PO SCH (21:57)
[2024-09-05] MEDS: Gabapentin 300 MG CAP PO SCH (21:58)
[2024-09-05] MEDS: Acetaminophen 325 MG TAB PO SCH (21:58)
[2024-09-05] MEDS: tiZANidine HCl 4 MG TAB PO PRN (21:59)
[2024-09-05] MEDS: Famotidine/PF 20 mg/2ml Vial SLOW IVP SCH (21:59)
[2024-09-05 22:23] VITALS: BMI 49.0
[2024-09-06] MEDS: Losartan 25 MG TAB PO SCH (08:14)
[2024-09-06] MEDS: Aspirin 81 mg Enteric Coated Tablet PO SCH (08:14)
[2024-09-06] MEDS: Amlodipine 10 MG TAB PO SCH (08:14)
[2024-09-06] MEDS: Sertraline 100 MG TAB PO SCH (08:15)
[2024-09-06] MEDS: Atorvastatin Calcium 40 MG TAB PO SCH (08:15)
[2024-09-06] MEDS: cefTRIAXone\\ROCEPHIN 1 GM in Sodium Chloride 0.9% 100 ML IVPB SCH (08:18)
[2024-09-06 09:19] LABS: #Basophils 0.09 10x3/uL (0.0-0.2); %Eosinophils 3.2 % (0.0-10.0); %Lymphocytes 35.3 % (21.0-51.0); %Monocytes 7.2 % (0.0-10.0); Hematocrit 34.7 % (36.0-47.0); Mean Corpuscular HGB CONC 34.6 g/dL (32.0-36.0); Mean Corpuscular Hemoglobin 29.8 pg (27.0-31.0); Mean Corpuscular Volume 86.1 fL (78.0-98.0); Mean Platelet Volume 10.4 fL (7.4-10.4); Platelet Count 184 10x3/uL (130-400); RBC Distribution Width 13.7 % (11.5-14.5); Red Blood Cell (RBC) Count 4.03 mill/uL (4.20-5.40)
[2024-09-06] MEDS: FLU (Fluarix Triv) TS24-25(6MOS UP)/PF 45 MCG/0.5 ML Syringe IM ONE (09:24)
[2024-09-06 09:38] LABS: Anion Gap 12 mmol/L (10-20); BUN (Urea Nitrogen) 32 mg/dL (9.8-20.1); Calc. Creatinine Clearance 119 mL/min (70-130); Calcium 8.7 mg/dL (7.8-10.44); Carbon Dioxide 23 mmol/L (22-29); Chloride 110 mmol/L (98-107); Estimated GFR 57; Glucose 196 mg/dL (70-105); Sodium 141 mmol/L (136-145)
[2024-09-06] MEDS: Insulin NPH Human Isophane 100 UNITS/ML (10 ML VIAL) SC SCH (11:09)
[2024-09-06] MEDS: Sodium Chloride 0.9% 1,000 ML IV SCH (13:03)
[2024-09-06] MEDS ORDERED: Iopamidol-370 76% 500 ML MDV (1 ML CHARGE) ONE (14:27)
[2024-09-06] MEDS: Insulin Lispro 100 UNIT/ML 10 ML VIAL SC PRN (16:18)
[2024-09-06] MEDS ORDERED: Meclizine HCl 12.5 MG TAB PO PRN (17:04)
[2024-09-07 05:45] LABS: Anion Gap 12 mmol/L (10-20); BUN (Urea Nitrogen) 32 mg/dL (9.8-20.1); Calc. Creatinine Clearance 135 mL/min (70-130); Calcium 8.7 mg/dL (7.8-10.44); Carbon Dioxide 23 mmol/L (22-29); Chloride 111 mmol/L (98-107); Estimated GFR 66; Glucose 211 mg/dL (70-105); Potassium 4.3 mmol/L (3.5-5.1); Sodium 142 mmol/L (136-145)
[2024-09-07] MEDS: cefTRIAXone\\ROCEPHIN 1 GM in Sodium Chloride 0.9% 100 ML IVPB SCH (09:05)
[2024-09-07 15:57] VITALS: BP 130/71; TEMP 98
== END 2024-09-07 15:57 | disposition home or self-care (01) ==
LOC: ERS 13:19 → OBS 19:27
PROVIDERS: ADMIT Student in an Organized Health Care Education/Training Program; ATTEND Internal Medicine
DX: R55 Syncope and collapse (principal); R42 Dizziness and giddiness; E66.9 Obesity, unspecified; E11.9 Type 2 diabetes mellitus without complications; M48.02 Spinal stenosis, cervical region; E78.5 Hyperlipidemia, unspecified; N39.0 Urinary tract infection, site not specified; E66.01 Morbid (severe) obesity due to excess calories; I10 Essential (primary) hypertension; F32.A Depression, unspecified; E11.42 Type 2 diabetes mellitus with diabetic polyneuropathy; Z98.890 Other specified postprocedural states; Z90.49 Acquired absence of other specified parts of digestive tract; Z79.899 Other long term (current) drug therapy; Z79.82 Long term (current) use of aspirin; Z79.4 Long term (current) use of insulin; Z68.42 Body mass index [BMI] 45.0-49.9, adult
CPT/HCPCS: 36415; 36416; 70450; 72125; 80048; 80053; 81001; 84484; 85025; 87077; 87086; 87186; 93005; 96365; 96375; 96376; G0378; J0696; J1815; J2272; J2405; J3490; Q9967